=== PATIENT | male | born 1965 | race Caucasian/White ===

== ENCOUNTER → 2018-10-11 04:00 | Outpatient (REF) | payer MEDICARE, SELFPAY ==
[2018-10-11 08:32] LABS: Absolute Lymphocyte Count 1.07 X10^3/ul (0.83-4.51); Absolute Neutrophil Count 3.8 X10^3/uL (2.0-7.7); Basophil# 0.02 X10^3/uL; Basophil% 0.3 % (0-1); Eosinophil# 0.16 X10^3/uL; Eosinophils% 2.8 % (0-5); Hematocrit 47.6 % (40-54); Hemoglobin 15.8 g/dl (13.0-16.5); Lymphocyte # 1.07 X10^3/ul (4.0); Lymphocyte % 18.6 % (19-41); Mean Corp Hgb Conc 33.2 g/gl (32-36); Mean Corpuscular Hgb 31.3 pg (27.0-32.0); Mean Corpuscular Volume 94.4 fL (80-94); Mean Platelet Vol. 10.7 fl (6.2-12.0); Monocyte# 0.71 X10^3/uL; Monocyte% 12.3 % (0-10); Neutrophil # 3.78 X10^3/uL (2.7-7.7); Neutrophil % 65.8 % (47-70); Platelet Count 261 K/mm3 (150-450); RBC Distribution Width CV 12.8 % (11.6-14.6); RBC Distribution Width SD 43.3 fl (35.1-43.9); Red Blood Count 5.04 M/mm3 (4.6-6.2); White Blood Count 5.8 K/mm3 (4.4-11.0)
[2018-10-11 08:33] LABS: POSITIVE COUNT NO; POSITIVE DIFFERENTIAL NO; POSITIVE MORPHOLOGY NO
[2018-10-11 08:57] LABS: ALB/GLOB Ratio 0.8 RATIO (0.9-2.4); AST(SGOT) 17 U/L (15-37); Alanine Aminotransfer ALT/SGPT 21 U/L (16-61); Albumin, Serum 3.3 g/dL (3.2-5.0); Alkaline Phosphatase 86 U/L (45-117); Anion Gap 8 (5-15); BUN 13 mg/dL (7-18); BUN/Creat Ratio 16.3 RATIO (10-20); Calcium,Total 9.1 mg/dL (8.5-10.1); Chloride 107 mmol/L (98-107); EST Glomerular Filtration Rate 108 mL/min (>60); Est Glom Filt Rate - Afr Amer 131 mL/min (>60); Globulin 3.9 g/dL (2.2-4.2); Glucose 111 mg/dL (74-106); Protein, Total 7.2 g/dL (6.4-8.2); Sodium Level 141 mmol/L (136-145)
--- OUTSIDE RECORDS SUMMARY | 2018-11-27 04:11 | XMS RPT_ITS ---
:1965 Author Organization OHIP Care Team Providers Name Role Phone Janis Marin Attending Unavailable BASSEM BOO Attending Unavailable BASSEM BOO Referring Unavailable BASSEM BOO Primary Care Unavailable LEIDY HERZOG Admitting Unavailable MD HYACINTH LOPEZ Attending Unavailable SARAH WYATT Consulting Unavailable LEIDY HERZOG Admitting Unavailable HYACINTH LOPEZ Attending Unavailable SARAH WYATT Consulting Unavailable NOMAN KIM Admitting Unavailable NOMAN KIM Attending Unavailable NOMAN KIM Primary Care Unavailable NOMAN KIM Admitting Unavailable NOMAN KIM Attending Unavailable NOMAN KIM Primary Care Unavailable ENRRIQUE GLEASON Attending Unavailable PROBLEMS PROBLEMS DATE TYPE CONDITION / CODE ATTENDING STATUS SOURCE 10/26/2018 Unknown G35 - Multiple Marin, Rishin Active [place] sclerosis / Community G35(ICD-10) Hospital Repository 10/26/2018 Unknown F33.0 - Major Marin, Rishin Active [place] depressive Community disorder, Hospital recurrent, mild / Repository F33.0(ICD-10) 10/26/2018 Unknown R62.7 - Adult Marin, Rishin Active [place] failure to thrive / Community R62.7(ICD-10) Hospital Repository 10/26/2018 Unknown R53.1 - Weakness / Marin, Rishin Active [place] R53.1(ICD-10) Community Hospital Repository 10/26/2018 Unknown K05.6 - Periodontal Janis Marin Active [place] disease, Community unspecified / Hospital K05.6(ICD-10) Repository 10/26/2018 Unknown R13.12 - Dysphagia, Janis Marin Active [place] oropharyngeal phase Community / R13.12(ICD-10) Hospital Repository 04/04/2018 Active DYSPHAGIA NOMAN KIM Active [facility] OROPHARYNGEAL PHASE N Hospital / R13.12(ICD-10) Repository 04/04/2018 Principle DYSPHAGIA NOMAN KIM Active [facility] Diagnosis OROPHARYNGEAL PHASE N Hospital / R13.12(ICD-10) Repository 03/04/2018 Active Unknown / KEVIN, Active [place] UNK(Unknown) [facility] [place] Repository 12/10/2017 Active Weakness / ALSKARLARBAJI, Active [place] R53.1(ICD-10) [facility] Other [place] Repository 12/10/2017 Active Elevated white GOMEZ, Active [place] blood cell count, [facility] Other unspecified / [place] D72.829(ICD-10) Repository 12/07/2017 Active Altered mental GOMEZ, Active [place] status, unspecified [facility] Other / R41.82(ICD-10) [place] Repository 12/10/2017 Admitting Unknown / MD GOMEZ Active [facility] diagnosis UNK(Unknown) [facility] Repository PROCEDURES PROCEDURES No Procedure Records FoundRESULTS RESULTS CBC W/DIFF, AUTOMATED Collected: 10/11/2018 Status: F Source: [place] 5:30 AM [facility] REPOSITORY Order Comment: 316/2 TYPE CODE TESTS RESULT OUT OF RANGE REFERENCE UNITS LAB L100.1000 4.4-11.0 K/mm3 Normal WBC 5.8 LAB L100.1200 4.6-6.2 M/mm3 Normal RBC 5.04 LAB L100.1300 13.0-16.5 g/dl Normal HGB 15.8 LAB L100.1400 40-54 % Normal HCT 47.6 LAB L100.1500 80-94 fL High MCV 94.4 LAB L100.1600 27.0-32.0 pg Normal MCH 31.3 LAB L100.1700 32-36 g/gl Normal MCHC 33.2 LAB L100.1810 11.6-14.6 % Normal RDW CV 12.8 LAB L100.1820 35.1-43.9 fl Normal RDW SD 43.3 LAB L100.1900 150-450 K/mm3 Normal PLT 261 LAB L100.2000 6.2-12.0 fl Normal MPV 10.7 LAB L100.2100 47-70 % Normal NEUT% 65.8 LAB L100.2200 19-41 % Low LY% 18.6 LAB L100.2300 0-10 % High MONO% 12.3 LAB L100.2400 0-5 % Normal EO% 2.8 LAB L100.2500 0-1 % Normal BASO% 0.3 LAB L100.2550 0.0-0.9 % Normal IM GRAN % 0.200 Result Comment: IG% - Immature Granulocytes (promyelocytes, myelocytes and metamyelocytes) > 1% indicates that a LEFT SHIFT is Present. LAB L100.2620 2.0-7.7 X10 3/uL Normal Absolute Neut 3.8 LAB L100.2720 0.83-4.51 X10 3/ul Normal Absolute Lymph 1.07 Performed By: #### L100.0100 #### [facility] [address] [place], [address] COMPREHENSIVE METABOLIC Collected: 10/11/2018 Status: F Source: [facility] 5:30 AM [facility] REPOSITORY Order Comment: 316/2 TYPE CODE TESTS RESULT OUT OF RANGE REFERENCE UNITS LAB L501.0100 74-106 mg/dL High GLU 111 Result Comment: Fasting Glucose result from 100 to 125 mg/dL suggests IMPAIRED HOMEOSTASIS per A.D.A. criteria. Please note revised GLUCOSE reference range effective 2017. LAB L501.1000 7-18 mg/dL Normal BUN 13 LAB L501.1100 0.70-1.30 mg/dL Normal CREAT,SERUM 0.80 Result Comment: The validity of the calculated GFR AND GFRAA in patients over 70 years has not been determined. Clinical correlation is essential. LAB L501.1110 >60 mL/min Normal EST GFR 108 Result Comment: Non- GFR Calc LAB L501.1115 >60 mL/min Normal EST GFR - AA 131 Result Comment: GFR Calc LAB L501.1300 10-20 RATIO Normal BUN/CRE 16.3 LAB L501.1500 6.4-8.2 g/dL T Normal PROT 7.2 LAB L501.1800 3.2-5.0 g/dL Normal ALB 3.3 LAB L501.1950 2.2-4.2 g/dL Normal GLOB 3.9 LAB L501.2000 0.9-2.4 RATIO Low A/G 0.8 LAB L501.2200 8.5-10.1 mg/dL CA Normal 9.1 LAB L501.4100 15-37 U/L Normal AST 17 Result Comment: Slight Hemolysis, Result may be falsely increased. LAB L501.4305 45-117 U/L Normal ALK P 86 LAB L501.4405 16-61 U/L Normal ALT 21 LAB L501.4600 0.20-1.00 mg/dL Normal T BILI 0.20 LAB L501.5300 136-145 mmol/L Normal NA 141 LAB L501.5600 3.5-5.1 mmol/L Normal K 4.0 Result Comment: Slight Hemolysis, Result may be falsely increased. LAB L501.5900 98-107 mmol/L Normal CL 107 LAB L501.6100 21.0-32.0 mmol/L Normal CO2 26.0 LAB L501.6200 5-15 Normal 8 GAP Performed By: #### L500.4050 #### [facility] [facility] [place], [address] XR SWALLOWING FUNCTION Observed: 04/01/2018 Status: F Source: [place] WITH VIDEO 11:00 AM [facility] REPOSITORY MODIFIED BARIUM SWALLOW (COOKIE SWALLOW) History: Dysphagia. Fluoroscopy time: 2.2 minutes Fluoroscopy loops obtained: 17 Technique: The exam was performed under fluoroscopy with video recording. Barium mixtures of various consistencies was used. Findings: The exam shows poor mastication with posterior bolus leakage. There is delayed swallowing with vallecular residuals. There is no vocal cord penetration or airway aspiration at this time. The esophagus is not [<>] visualized in this exam for evaluation. IMPRESSION: Abnormal findings as described above. Please refer to the speech pathologist 's report for additional details and recommendations. Report Dictated on Authenticated by: Maryann Tolentino On: 04/01/2018 10:57 Read by: MARYANN TOLENTINO MD Date: 04/01/2018 10:57 PROGRESS Observed: 03/25/2018 Status: COMPLETED Source: [place] 1:13 PM CLINIC OTHER CAMPUS REPOSITORY HNO ID: [id number] Author: Hillary Mckeon Service: (none) Author Type: LICENSED NURSE Type: Progress Notes Filed: 03/25/2018 1:16 PM Note Text: Spoke with patients spouse, Jadyn. Jadyn stated that patient is now in a LTCF and will remain there, stated he will be using in house doctors from now on. Hillary Mckeon LPN CNPTOUTREACH Observed: 03/25/2018 Status: COMPLETED Source: [place] 12:00 AM CLINIC OTHER [place] REPOSITORY Patient Outreach ([facility]) SON COLUNGA ([id number]) 1965 M Date Time Provider Department 03/25/18 HILLARY MCKEON LPN During your visit today, we recorded the following information about you: Hillary Mckeon LPN 03/25/2018 1:16 PM Signed Spoke with patients spouse, Jadyn. Jadyn stated that patient is now in a LTCF and will remain there, stated he will be using in house doctors from now on. Hillary Mckeon LPN Allergies As of Date: 03/25/2018 (No Known Allergies) Date Reviewed: 03/04/2018 Reviewed by: Enrrique Gleason - Fully Assessed Reason for Visit: Patient Outreach [Other] Cmt: Patient Outreach Prescriptions as of 03/25/2018 Sig: PAROXETINE 30 MG TABLET TAKE 1 TABLET BY MOUTH ONCE D* METHYLCELLULOSE (LAXATIVE) 50* Take 1 tablet by mouth three * POLYETHYLENE GLYCOL 3350 17 G* Take 17 g by mouth once daily. CYANOCOBALAMIN (VIT B-12) 2,5* Dissolve 1 tablet under the t* MULTIVITAMIN ORAL Take by mouth. OCREVUS INTRAVENOUS Inject intravenously once rick* DOCUSATE SODIUM 100 MG CAPSULE Take 1 capsule by mouth once * CHOLECALCIFEROL (VITAMIN D3) * Take 1 capsule by mouth once * Problem List As Of Date 03/25/2018 Noted Resolved Gait abnormality [R26.9] INVALID FOR* Lack of coordination [R27.9] INVALID FOR* Multiple sclerosis (HCC) [G35] INVALID FOR* Dry eye syndrome [H04.129] INVALID FOR* Corneal scars, both eyes [H17.9] INVALID FOR* Nuclear senile cataract of both eyes [H25.13] INVALID FOR* Refractive error [H52.7] INVALID FOR* Dysphagia [R13.10] INVALID FOR* Periodontal disease [K05.6] INVALID FOR* Generalized weakness [R53.1] INVALID FOR* Leukocytosis [D72.829] INVALID FOR*12/10/2017 Encounter Status:Closed by HILLARY MCKEON LPN on 03/25/18 PROGRESS Observed: 03/04/2018 Status: COMPLETED Source: [place] 11:36 AM [facility] REPOSITORY O ID: [id number] Author: Enrrique Gleason Service: (none) Author Type: Physician Type: Progress Notes Filed: 03/04/2018 11:47 AM Note Text: ASSESSMENT/PLAN: 1. 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 3. Nuclear senile cataract of both eyes - ICD9: 366.16, ICD10: H25.13 Mild nuclear sclerosis both eyes - not visually significant both eyes Educated patient on condition; continue to monitor. 4. Multiple sclerosis (HCC) - ICD9: 340, ICD10: G35 States multiple sclerosis has been getting worse over past year 5. Refractive error - ICD9: 367.9, ICD10: H52.7 Glasses prescription given to patient Recheck in one year or sooner as needed Enrrique Gleason MD I have confirmed and edited as necessary the relevant ophthalmic history, ROS, and the neuro exam findings as obtained by others. I have seen and examined Son Colunga. I have discussed the case and the management of this patient's care with the Resident/Fellow, if applicable. I also have reviewed and agree with the assessment and plan as stated above and agree with all of its relevant components. MIRIAN Observed: 01/24/2018 Status: COMPLETED Source: [place] 12:00 AM [facility] OTHER [place] REPOSITORY Telephone ([facility]) SON COLUNGA ([id number]) 1965 M Date Time Provider Department 01/24/18 KAELYN CHAU) [facility] During your visit today, we recorded the following information about you: Kaelyn Chau RN, RN 01/24/2018 4:34 PM Signed Received phone call from pt requesting assistance with returning to apartment. Pt currently in [facility]. Chart reviewed. Recent admission 12/07/17 - 12/10/17 for UTI and MS with dc to SNF. Pt states he would like to return back to his apartment. He was receiving assistance thru [facility]. Informed that CM would contact [facility] CM to discuss ECF or return back to apartment. Discussed with Jay Askew RN [facility]. Pt discharged from [facility] 12[facility]03 care needs unable to be met in the home. Pt currently at [facility], unsure of transition to assisted living. Allergies As of Date: 01/24/2018 (No Known Allergies) Date Reviewed: 12/08/2017 Reviewed by: Melissa (Rn) RUSS Henderson - Fully Assessed Reason for Visit: Building Drafter - Other [[id number]] Cmt: Son [phone] Prescriptions as of 01/24/2018 Sig: PAROXETINE 30 MG TABLET TAKE 1 TABLET BY MOUTH ONCE D* METHYLCELLULOSE (LAXATIVE) 50* Take 1 tablet by mouth three * POLYETHYLENE GLYCOL 3350 17 G* Take 17 g by mouth once daily. CYANOCOBALAMIN (VIT B-12) 2,5* Dissolve 1 tablet under the t* MULTIVITAMIN ORAL Take by mouth. 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 No additional spot fluoroscopic images were made available for interpretation. A modified barium swallow was performed in conjunction with the speech pathology department. The patient was administered various consistencies of barium under direct fluoroscopic visualization in the lateral projection. FINDINGS: There was sonia aspiration of nectar thick liquids. No significant laryngeal penetration or aspiration was observed with honey thick liquids or other textures. Please see the full speech pathology note for additional details and recommendations. Report Dictated on Authenticated by: Eren Love On: 01/21/2018 10:12 Read by: EREN LOVE MD Date: 01/21/2018 10:12 OBSOLETE Observed: 01/08/2018 Status: COMPLETED Source: [place] 12:00 AM [facility] REPOSITORY Refill ([facility]) CRISTINESON ([id number]) 1965 M Date Time Provider Department 01/08/18 BASSEM BOO During your visit today, we recorded the following information about you: Casandra Calvo CMA 01/10/2018 10:16 AM Signed Pharmacy faxed requesting the following refill. Patient's last appointment: with Bassem Boo MD was 09/14/2017 Pending Prescriptions Disp Refills PAROXETINE 30 MG TABLET 90 tablet 0 Sig: TAKE 1 TABLET BY MOUTH ONCE DAILY. KRISTY: No Patient Phone numbers: [phone] (home) Request is for script(s) to be escript to pharmacy. Casandra Calvo CMA Allergies As of Date: 01/08/2018 (No Known Allergies) Date Reviewed: 12/08/2017 Reviewed by: Melissa Spivey) RUSS Henderson - Fully Assessed Reason for Visit: Refill Request [94] Order(s):PARoxetine (PAXIL) 30 mg tabletTAKE 1 TABLET BY MOUTH ONCE DAILY.Disp: 90 tabletRfl: 0 Prescriptions as of 01/08/2018 Sig: PAROXETINE 30 MG TABLET TAKE 1 TABLET BY MOUTH ONCE D* METHYLCELLULOSE (LAXATIVE) 50* Take 1 tablet by mouth three * POLYETHYLENE GLYCOL 3350 17 G* Take 17 g by mouth once daily. CYANOCOBALAMIN (VIT B-12) 2,5* Dissolve 1 tablet under the t* MULTIVITAMIN ORAL Take by mouth. OCREVUS INTRAVEN. Inject intravenously once rick* DOCUSATE SODIUM 100 MG CAPSULE Take 1 capsule by mouth once * CHOLECALCIFEROL (VITAMIN D3) * Take 1 capsule by mouth once * Problem List As Of Date 01/08/2018 Noted Resolved Gait abnormality [R26.9] INVALID FOR* Lack of coordination [R27.9] INVALID FOR* Multiple sclerosis (HCC) [G35] INVALID FOR* Dry eye syndrome [H04.129] INVALID FOR* Corneal scars, both eyes [H17.9] INVALID FOR* Nuclear cataract [H25.10] INVALID FOR* Refractive error [H52.7] INVALID FOR* Dysphagia [R13.10] INVALID FOR* Periodontal disease [K05.6] INVALID FOR* Generalized weakness [R53.1] INVALID FOR* Leukocytosis [D72.829] INVALID FOR*12/10/2017 Prescriptions ordered this encounter Disp Refills Start End PAROXETINE 30 MG TABLET 90 t* 0 01/10/2018 Sig: TAKE 1 TABLET BY MOUTH ONCE DAILY. Medications Discontinued During This Encounter PARoxetine (PAXIL) 30 mg tablet 90 t* 0 09/14/2017 01/10/2018 Route: ORAL Sig: Take 1 tablet by mouth once daily. Disc: Reason for discontinue is not on file. Encounter Status:Closed by BASSEM BOO MD on 01/10/18 NURSING PROG Observed: 12/10/2017 Status: COMPLETED Source: [place] 5:01 PM [facility] REPOSITORY HNO ID: [id number] Author: Edwar (Rn) RUSS Weiner Service: Nursing Author Type: Registered Nurse Type: Nursing Progress Note Filed: 12/10/2017 5:08 PM Note Text: Report called to Rajan at [facility]. NURSING PROG Observed: 12/10/2017 Status: COMPLETED Source: [place] 4:13 PM [facility] REPOSITORY HNO ID: [id number] Author: Edwar (Rn) RUSS Weiner Service: Nursing Author Type: Registered Nurse Type: Nursing Progress Note Filed: 12/10/2017 4:14 PM Note Text: Attempt was made to call report to Raajn at [facility]. Rajan not prepared to receive report at this time and requests to call back soon. CNDS Observed: 12/10/2017 Status: COMPLETED Source: [place] 2:23 PM [facility] REPOSITORY HNO ID: [id number] Author: Hyacinth Lopez Service: Hospital Medicine Author Type: Physician Type: Discharge Summaries Filed: 12/10/2017 2:25 PM Note Text: DISCHARGE SUMMARY PATIENT NAME: Son Colunga ADMISSION DATE: 12/07/2017 DISCHARGE DATE: 12/10/2017 ATTENDING PHYSICIAN: Hyacinth Lopez REASON FOR HOSPITALIZATION: ACTIVE PROBLEM LIST Gait Abnormality Lack of Coordination Multiple Sclerosis (Hcc) Dry Eye Syndrome Corneal Scars, Both Eyes Nuclear Cataract Refractive Error Dysphagia Periodontal Disease Generalized Weakness DIAGNOSIS: Active Problems: Generalized weakness Resolved Problems: Leukocytosis OPERATIONS DURING HOSPITALIZATION: None PROCEDURES DURING HOSPITALIZATION: No procedures performed HOSPITAL COURSE: presented to hospital for generalized weakness and fall, we believe this is related to progression course of multiple sclerosis course, you had elevated WBC count on admission which was likely reactive it normalized without antimicrobials, you were evaluated by physical therapy and occupational therapy, we are recommended to for rehab placement. You are agreeable LABS AND PROCEDURES PENDING AT DISCHARGE: No pending results. CONSULTING TEAMS DURING HOSPITALIZATION: None PATIENT CONDITION AT DISCHARGE: Stable DISCHARGE DISPOSITION: Long Term Facility Discharge Physical Exam: VITAL SIGNS: BP 128/79 Pulse 76 Temp 36.7 ?C (98.1 ?F) (Oral) Resp 18 Ht 170.2 cm (5' 7.01) Wt 68.5 kg (151 lb 0.2 oz) SpO2 95% BMI 23.65 kg/m2 Physical Exam Performed GENERAL: Alert, no distress, cooperative HEAD/SINUSES: No significant findings EYES: PERRLA, EOMI NECK: No jugulovenous distention, Carotid pulse normal contour, Supple LUNGS: Lungs clear to auscultation, Good diaphragmatic excursion CARDIAC: Normal S1 and S2; no rubs, murmurs, or gallops ABDOMEN: Abdomen soft, non-tender, BS normal, No masses or organomegaly EXTREMITIES: no edema or cyanosis NEURO: Grossly normal cognition, motor function, and cranial nerves III-XII PULSES: 2+ radial, 2+ carotid INFORMATION PROVIDED TO PATIENT: (To pull info documented from the DC Instruct Orderset Complete O/S First): DISCHARGE MEDICATION: Current Discharge Medication List CONTINUE these medications which have NOT CHANGED Methylcellulose (Laxative) 500 mg Take 500 mg by mouth three times daily with meals. Qty: 90 tablet Refills: 5 polyethylene glycol 3350 (MIRALAX, GLYCOLAX) 17 g Take 17 g by mouth once daily. Qty: 510 g Refills: 0 PARoxetine (PAXIL) 30 mg Take 30 mg by mouth once daily. Qty: 90 tablet Refills: 0 Cyanocobalamin 1 tablet Dissolve 1 tablet under the tongue once daily. Qty: 90 tablet Refills: 3 Associated Diagnoses:Vitamin B12 deficiency OCRELIZUMAB (OCREVUS INTRAVEN.) Inject intravenously once every 6 months. docusate sodium (COLACE) 100 mg Take 100 mg by mouth once daily. Qty: 30 capsule Refills: 1 Associated Diagnoses:Chronic constipation Cholecalciferol (Vitamin D3) 1 capsule Take 1 capsule by mouth once daily. Qty: 30 capsule Refills: 12 MULTIVITAMIN ORAL Take by mouth. FUTURE APPOINTMENTS: Follow Up with PCP: Bassem Boo MD TIME OF CARE (Use first blank if not applicable): TIME OF CARE: Discharge Management: I personally spent less than 30 minutes involved in the discharge management of this patient. SIGNATURE: Hyacinth Lopez MD PATIENT NAME: Son Colunga DATE: December 10, 2017 TIME: 2:23 PM PAGER/CONTACT #: THERAPY NT Observed: 12/10/2017 Status: COMPLETED Source: [place] 11:32 AM CLINIC OTHER CAMPUS REPOSITORY HNO ID: [id number] Author: Christian (Pt) Juan Service: Physical Therapy Author Type: Physical Therapist Type: Therapy (PT/OT/Speech/Resp) Filed: 12/10/2017 11:44 AM Note Text: Physical Therapy Treatment SERVICE DATE: 12/10/2017 SERVICE TIME: 1050 to 1113 ROOM: [place] [id number] Recommended Discharge Disposition: Subacute/SNF Recommended Discharge Disposition Comments: If pt declines and chooses to go home then he will benefit from home PT Justification For Post Acute Needs: Need for assistance may exceed support available PT Recommendations to Nursing: With assist of 1 person (pivot to BSC. If assist of two and walker then to bathroom.) Ambulation Device: Wheeled Walker PT 6 Clicks Score: 18 Precautions/Activity Restrictions: Bed/Chair Alarm;Fall Risk;Lines/Tubes/Drains Isolation Type: None ASSESSMENT : Pt still unsteady and needing min assist with transfers. Will benefit from the skilled services of PT at a SNF. Tolerated Full Session Physical Therapy Problem List: Education Deficit;Safety Deficits;Impaired Self Care;Decreased Activity Tolerance;Decreased Strength;Functional Mobility Impairment;Balance Impaired Patient /Caregiver Goals: Walk;Go Home Goals for Plan of Care: Able to perform HEP with: Verbal Cues Only Transfer supine to/from sit with: Contact Guard Assistance Transfer sit to/from stand with: Contact Guard Assistance Ambulate with: Contact Guard Assistance Distance: 50 Device: Wheeled Walker Goal: pt maintains balance with dynamic activities including picking objects up from floor. Progress Toward Goals: Progressing as expected Rehab Potential: Good PLAN: Treatment Frequency (times per week): 5 (2-5) Treatment Interventions: Education;Strengthening;Functional Mobility Training;Balance Training Plan of Care developed with: Patient TREATMENT INTERVENTIONS: Therapy Diagnosis: Reduced mobility-other;Unsteadiness on feet;Abnormalities of gait and mobility-other Interventions Provided: Therapeutic Exercise (33792);Therapeutic Activity (90980);Gait Training (20570) Therapeutic Exercise (31757) Treatment Minutes: 12 1 unit Skilled Intervention(s): Instruction in therapeutic exercise L LE strength and coordination exs. 10 reps. Also completed 10 reps of bridging and sidelying hip abduction. Verbal and tactile cuing provided . Facilitation of muscle control, optimal recruitment and alignment especially with hip abduction to recruit abductors not hip flexors. Therapeutic Activity (44734) Treatment Minutes: 5 0 units Skilled Intervention(s): Instructed patient in sit to supine using safe, effective technique Instruction in stand to sit technique with lower extremities touching chair/bed and reaching back for surface Education with need to have assist whenever on feet. Pt needed PT guidance to deal with reported dizziness upon siting up. Pt instructed to lay down and immediately get back up and he felt better. Gait Training (28246) Treatment Minutes: 6 1 unit Skilled Intervention(s): Instruction in sit to stand technique with proper hand placement and body positioning at edge of bed/chair, Instruction in use of equipment, cues for sequence and pattern and Pt needed monitoring and guidance on limiting ambulation distance due to c/o dizziness this session. Total Timed Code Treatment Minutes: 23 Total Treatment Time (minutes): 23 FUNCTIONAL G CODE: PT 6 Clicks Score: 18 (12/10/17 1050) Mobility: Walking and Moving Around Current Status (G8978): CK (12/08/17 1045) Mobility: Walking and Moving Around Goal Status (G8979): CJ (12/08/17 1045) Based on clinical assessment and the score on the 6 Clicks Functional Assessment Tool, the G code and corresponding severity modifiers are documented above. SUBJECTIVE: Current Hospital Course: Chart reviewed and no significant medical updates relevant to therapy were noted Patient Report: Pt willing to participate. Pt with increase c/o unsteady gait and dizziness this session. Home Environment Patient Lives With: Self/Alone Assistance Available: multimedia programmer (Aids 7 d/week for 5 hr/day) Entry To Home: Elevator (apartment- senior care) Number Of Stairs To Bed/Bath: 0 Laundry: 2nd floor? Equipment Owned: Rollator Prior Functional Level: Required Assistance;History of Falls Assistance Required With: Self Care Prior Functional Level Comments: Aid assists with ADLs and IADLs OBJECTIVE: CURRENT FUNCTIONAL STATUS: Current Functional Mobility Assist Level Additional Information Rolling Minimal Assistance Supine to Sit Minimal Assistance Sit to Supine Contact Guard Assistance Scooting Contact Guard Assistance Sit to Stand Minimal Assistance Stand to Sit Contact Guard Assistance Bed to Chair Toilet/Commode Gait Minimal Assistance Gait Device: Wheeled Walker Gait Distance (feet): 20 Stairs Curb Step Car Transfer General Gait Deviations: Shuffling Gait;Loss of Balance (ataxia L LE) Balance: Dynamic Standing Dynamic Standing Balance: Minimal Assistance Please see discipline specific clinical documentation flowsheet for complete details for this therapy evaluation/treatment. SIGNATURE: Christian Martinez PT PATIENT NAME: Son Colunga DATE: December 10, 2017 TIME: 11:32 AM PAGER/CONTACT #: [phone] CASE MANAGEM Observed: 12/10/2017 Status: COMPLETED Source: [place] 10:32 AM [facility] REPOSITORY HNO ID: [id number] Author: Sena (Rn) RUSS Chopra Service: Care Management Author Type: Registered Nurse Type: Care Mgt Progress Note Filed: 12/10/2017 10:33 AM Note Text: CARE MANAGEMENT PROGRESS NOTE SERVICE DATE: 12/10/2017 SERVICE TIME: 10:32 AM LOS: 0 days Needs Prior to Discharge: Discharge Transportation;Insurance Authorization CHART REVIEWED. AWAITING INSURANCE AUTH FOR [facility]. SPOKE TO JADYN [facility] [phone] WITH UPDATE. SIGNATURE: Sena Chopra RN PATIENT NAME: Son Colunga DATE: December 10, 2017 TIME: 10:32 AM PAGER/CONTACT #: [phone] CASE MANAGEM Observed: 12/10/2017 Status: COMPLETED Source: [place] 9:36 AM [facility] REPOSITORY HNO ID: [id number] Author: Marnie (Specialist) Spike Service: Care Management Author Type: (none) Type: Care Mgt Progress Note Filed: 12/10/2017 9:37 AM Note Text: PASS complete to [facility], filed, uploaded in [employer], placed in D/P section of the chart. SOCIAL WORK Observed: 12/10/2017 Status: COMPLETED Source: [place] 9:18 AM [facility] OTHER CAMPUS REPOSITORY HNO ID: [id number] Author: Angi Sanon) EDUARD Mendieta Service: Social Work Author Type: Center Mgr Type: Social Work Filed: 12/10/2017 9:23 AM Note Text: SOCIAL WORK PROGRESS NOTE SERVICE DATE: 12/10/2017 SERVICE TIME: 9:18 AM LOS: 0 days Received call from patient's [facility].Jadyn who wanted to discuss plans for discharge and patient's future needs. Referred specifc questions to Ecff. Time Spent (minutes): 45 SIGNATURE: EDUARD Christie PATIENT NAME: Son Colunga DATE: December 10, 2017 TIME: 9:18 AM PAGER/CONTACT #: [phone] CASE MANAGEM Observed: 12/09/2017 Status: COMPLETED Source: [place] 3:19 PM [facility] REPOSITORY HNO ID: [id number] Author: Paula Spivey) RUSS Pan Service: Care Management Author Type: Registered Nurse Type: Care Mgt Progress Note Filed: 12/09/2017 3:35 PM Note Text: CARE MANAGEMENT PROGRESS NOTE SERVICE DATE: 12/09/2017 SERVICE TIME: 3:19 PM LOS: 0 days Chart reviewed. [facility] [place] ([facility]) able to accept patient. Awaiting insurance authorization. Will continue to follow for discharge needs. SIGNATURE: Paula Pan RN PATIENT NAME: Son Colunga DATE: December 09, 2017 TIME: 3:19 PM PAGER/CONTACT #: [phone] PROGRESS Observed: 12/09/2017 Status: COMPLETED Source: [place] 2:42 PM [facility] REPOSITORY HNO ID: [id number] Author: Hyacinth Lopez Service: Hospital Medicine Author Type: Physician Type: Progress Notes Filed: 12/09/2017 2:48 PM Note Text: DEPARTMENT OF HOSPITAL MEDICINE PROGRESS NOTE SERVICE DATE: 12/08/2017 SERVICE TIME: 5:40 PM Hospital Medicine/Primary Attending: Hyacinth Lopez MD NIGHT AND WEEKEND COVERAGE: After 7pm, please call cross cover pager #[phone] Subjective Patient has no new complaints, denied chest pain, nausea, vomiting or diarrhea, VS stable overall feels weak and agreeable for SNF placement MEDICATIONS: Reviewed Objective PHYSICAL EXAM: BP 128/91 Pulse 72 Temp (Src) 97.5 (Oral) Resp 18 Ht 5' 7.008 (1.70m) Wt 151 lb 0.2 oz (68.5kg) SpO2 95% BMI 23.65 kg/(m2). Physical Exam Performed GENERAL: Alert, no distress, cooperative HEAD/SINUSES: No significant findings EYES: PERRLA, EOMI NECK: No jugulovenous distention, Carotid pulse normal contour, Supple LUNGS: Lungs clear to auscultation, Good diaphragmatic excursion CARDIAC: Normal S1 and S2; no rubs, murmurs, or gallops ABDOMEN: Abdomen soft, non-tender, BS normal, No masses or organomegaly EXTREMITIES: no edema or cyanosis NEURO: Grossly normal cognition, motor function, and cranial nerves III-XII PULSES: 2+ radial, 2+ carotid Lines, Drains, and Airways Line Peripheral 12/07/17 1501 Right Hand 20 Gauge 1 day Reviewed lines, drains, AND airways. Need to be continued for today DATA: Diagnostic tests reviewed for today's visit: Most recent labs and imaging results. Most recent EKG Assessment/Plan Generalized weakness likely related to his MS, : awaiting SNF palcement Hx of MS on immunotherapy, does not appear to have flare up, he follows outpatient neurologist Depression cont Paxil Hx of Vit B12 cont supplement level is therapeutic VTE Prophylaxis: Lovenox 40mg Sub Q Daily Disposition: Home with [facility] Plan of care discussed with: Patient, Case Mangement and RN SIGNATURE: Hyacinth Lopez MD PATIENT NAME: Son Colunga DATE: December 09, 2017 TIME: 2:42 PM PAGER/CONTACT #: [phone] CONSULT Observed: 12/09/2017 Status: COMPLETED Source: [place] 1:21 PM [facility] OTHER CAMPUS REPOSITORY HNO ID: [id number] Author: Lian Ross Service: Psychology Author Type: Physician Type: Consults Filed: 12/09/2017 4:03 PM Note Text: Psychology Consultation Capacity Evaluation December 09, 2017 Pt seen from 12:50-1:40 This is a 52 year old man who is diagnosed with MS, presenting now to the hospital after an episode of increasing weakness of unclear etiology. They admitted him for evaluation and possible placement. This evaluation requested to assess capacity for decision making given pt's difficulty caring for needs at home and confusion about where he is to be placed. Prior to direct evaluation and interview, I reviewed available records and spoke with the licensed clinical social worker managing the case. MSE: Pt was in bed, alert and oriented on all spheres. His mood was mildly anxious and overwhelmed. His affect was mood congruent, including tearfulness at times as well as smiling/laughing. He appeared to be making an effort to be jovial and friendly. His speech was at times slow and hard to understand, perhaps secondary to lower baseline intellectual abilities and/or his disease process. He had poor dentition. His thought processes were logical and goal directed, with no clear indication of psychotic thought process. He denied and did not evidence hallucinations or paranoia. He denied suicidal or homicidal ideation. He occasionally made mildly inappropriate social comments regarding the interviewer,most likely due to a desire to connect socially. He was cooperative throughout. Pt knew the name of the current president. He was frequently acquiescent and seemed to make efforts to please the examiner. His MOCA score of 13/30 was suggestive of significant cognitive impairment, particularly related to executive function, language/abstraction, and delayed recall. His performance did appear to be affected by anxiety and he may have a baseline level of impairment intellectually. Interview: pt related that he came to the hospital after he was anxious and hyperventilating about various stressors. He acknowledged being diagnosed with MS in November 2010 and having complications of that. He named his doctor as Dr. Escobedo and reported that he gets treatment at the [facility]. He knew he has six home medications and he was able to refer to a list of meds that he keeps although he did now know their names. He was aware of their indication for MS. Pt was aware that his doctors were recommending senior care placement in both the short and longer-term. He described uncertainty about this decision, as he related anxiety about making friends in that setting. He talked about being lonely and fearing he would not fit in because he is younger than other patients who might be there. He was are of the potential benefits of the recommendation, including improving his balance, his unsteady gait, gaining weight in that environment, and engaging in more activities/games with other residents. His primary hesitation about going was related to his fears of being uncomfortable, losing his stuff at home, and fears about not fitting in. He seemed to acknowledge, but minimize, the risks of going home. He was aware that he needs help from others to function physically. 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 Has limited social support. Recently ID'ed his neighbor of 1.5 years as HCPOA. Has four kids, ages 16-28. Lives alone in apartment in [place]; has some in-home supports. Psych: Apparently treated in childhood with therapy. More recently, has been treated with medication for depression/anxiety/anger. He says he currently takes Paxil from his neurologist. He denies any history of suicidality or suicide attempts. He describes his kids as protective factors. Impressions: This is a 52 year old man with a diagnosis of MS and associated weakness/debility. He needs more help than his neighbor plus his caretakers can provide at home and has been recommended for senior care care. Pt understood the recommendations and was able to reason about his choices. He was able to describe in general terms the risks and benefits of his various options, and he seemed to acknowledge his limitations. He does present with cognitive impairments on testing but nonetheless seems able to appreciate his situation. Accordingly, he would appear to meet usual standards for medical decision making related to planning his discharge. At this time, he does agree to going to SNF. I would certainly recommend involving his HCPOA in decision making for his own benefit, but it is my opinion that he has capacity to make this decision. I would also recommend providing reassurance to pt about the social environment at the senior care and attempting to assuage his fears about socializing at the senior care. Providing risks/benefits in a clear, concrete way would be to his benefit. He expressed satisfaction with is current psychiatric medication and was not interested in further treatment for depression at this time. As always, capacity is a fluid concept and may change with time/cognitive/emotional functioning. Please feel free to request re-evaluation should his situation change. Lian Ross, PhD CASE MANAGEM Observed: 12/09/2017 Status: COMPLETED Source: [place] 10:21 AM [facility] OTHER CAMPUS REPOSITORY HNO ID: [id number] Author: Marnie (Specialist) Spike Service: Care Management Author Type: (none) Type: Care Mgt Progress Note Filed: 12/09/2017 10:21 AM Note Text: SNF referral sent to [facility] SOCIAL WORK Observed: 12/09/2017 Status: COMPLETED Source: [place] 10:06 AM [facility] REPOSITORY HNO ID: [id number] Author: EDUARD Christie (Lisw) Service: Social Work Author Type: Center Mgr Type: Social Work Filed: 12/09/2017 10:12 AM Note Text: SOCIAL WORK PROGRESS NOTE SERVICE DATE: 12/09/2017 SERVICE TIME: 10:06 AM LOS: 0 days [facility] patient was coming home and she can't care for him. Met with patient and reinforced that P.T. is recommending SNF and that Jadyn is unable to care for him any longer and [facility] cannot increase help by much. Patient now agrees to go to SNF but wants to go to a SNF where he can [facility] to [facility] the assisted living. Talked to Leah Moraes today,[employer] and she is coming out today to try to get the Waiver kashif started. .Called back Jadyn who wants [facility] if possible. will let CM know. Time Spent (minutes): 45 SIGNATURE: EDUARD Christie PATIENT NAME: Son Colunga DATE: December 09, 2017 TIME: 10:06 AM PAGER/CONTACT #: [phone] CASE MANAGEM Observed: 12/09/2017 Status: COMPLETED Source: [place] 9:33 AM [facility] REPOSITORY HNO ID: [id number] Author: Paula Pan RN Service: Care Management Author Type: Registered Nurse Type: Care Mgt Progress Note Filed: 12/09/2017 3:35 PM Note Text: CARE MANAGEMENT PROGRESS NOTE SERVICE DATE: 12/09/2017 SERVICE TIME: 9:33 AM LOS: 0 days Chart reviewed. Spoke with patient at the bedside and patient's [facility] Jadyn. Patient agreeable to post acute inpatient facility. First choice for post acute inpatient facility is now [facility] in [place]. Await acceptance. Will continue to follow for discharge needs. SIGNATURE: Paula Pan RN PATIENT NAME: Son Gillraghu DATE: December 09, 2017 TIME: 9:33 AM PAGER/CONTACT #: [phone] PROGRESS Observed: 12/08/2017 Status: COMPLETED Source: [place] 5:40 PM [facility] OTHER CAMPUS REPOSITORY HNO ID: [id number] Author: Hyacinth Lopez Service: Hospital Medicine Author Type: Physician Type: Progress Notes Filed: 12/08/2017 5:45 PM Note Text: DEPARTMENT OF HOSPITAL MEDICINE PROGRESS NOTE SERVICE DATE: 12/08/2017 SERVICE TIME: 5:40 PM Hospital Medicine/Primary Attending: Hyacinth Lopez MD NIGHT AND WEEKEND COVERAGE: After 7pm, please call cross cover pager #[phone] Subjective INTERVAL HPI: patient was admitted for weakness and fall, he has hx of MS, Today patient tells me he feels much better, he said yesterday the bathroom was wet and he slipped but denied LOC, vs stable, patient remained afebrile, no significant orthostatic changes MEDICATIONS: Reviewed Objective PHYSICAL EXAM: BP 149/79 Pulse 91 Temp (Src) 98.1 (Oral) Resp 18 Ht 5' 7.008 (1.70m) Wt 151 lb 0.2 oz (68.5kg) SpO2 97% BMI 23.65 kg/(m2). Physical Exam Performed GENERAL: Alert, no distress, cooperative HEAD/SINUSES: No significant findings EYES: PERRLA, EOMI NECK: No jugulovenous distention, Carotid pulse normal contour, Supple LUNGS: Lungs clear to auscultation, Good diaphragmatic excursion CARDIAC: Normal S1 and S2; no rubs, murmurs, or gallops ABDOMEN: Abdomen soft, non-tender, BS normal, No masses or organomegaly EXTREMITIES: no edema or cyanosis NEURO: Grossly normal cognition, motor function, and cranial nerves III-XII PULSES: 2+ radial, 2+ carotid Lines, Drains, and Airways Line Peripheral 12/07/17 1501 Right Hand 20 Gauge 1 day Reviewed lines, drains, AND airways. Need to be continued for today DATA: Diagnostic tests reviewed for today's visit: Most recent labs and imaging results. Most recent EKG Assessment/Plan Generalized weakness likely related to his MS, PT/OT recommended SNF however patient wanted to be discharged home possibly in AM and continue home health, he stated he had good support at home, Leukocytosis : resolved this is likely reactive, no need for antimicrobials VTE Prophylaxis: Lovenox 40mg Sub Q Daily Disposition: Home with [facility] Plan of care discussed with: Patient, Case Mangement and RN SIGNATURE: Hyacinth Lopez MD PATIENT NAME: Son Colunga DATE: December 08, 2017 TIME: 5:40 PM PAGER/CONTACT #: [phone] CASE MANAGEM Observed: 12/08/2017 Status: COMPLETED Source: [place] 3:17 PM [facility] OTHER CAMPUS REPOSITORY HNO ID: [id number] Author: Marnie (Specialist) Spike Service: Care Management Author Type: (none) Type: Care Mgt Progress Note Filed: 12/08/2017 3:17 PM Note Text: SNF referral made to [facility] CASE MANAGEM Observed: 12/08/2017 Status: COMPLETED Source: [place] 3:07 PM [facility] REPOSITORY HNO ID: [id number] Author: Sena (Rn) RUSS Chopra Service: Care Management Author Type: Registered Nurse Type: Care Mgt Progress Note Filed: 12/08/2017 3:11 PM Note Text: CARE MANAGEMENT PROGRESS NOTE SERVICE DATE: 12/08/2017 SERVICE TIME: 3:08 PM LOS: 0 days Needs Prior to Discharge: Accepting Facility;Insurance Authorization;Discharge Transportation CHOICES OBTAINED FROM PATIENT AND LACY BEAVER 1) [facility] 2) [facility] 3) [facility] [place]. AWAIT BED AVAILABILITY/ACCEPTANCE. PATIENT TRAHILDA JADYN WOULD LIKE THE PATIENT TO BE SKILLED THEN GO INTERMEDIATE AT SAME FACILITY SIGNATURE: Sena Chopra RN PATIENT NAME: Son Colunga DATE: December 08, 2017 TIME: 3:07 PM PAGER/CONTACT #: [phone] SOCIAL WORK Observed: 12/08/2017 Status: COMPLETED Source: [place] 2:23 PM [facility] OTHER CAMPUS REPOSITORY HNO ID: [id number] Author: EDUARD Christie (Lisw) Service: Social Work Author Type: Center Mgr Type: Social Work Filed: 12/08/2017 2:36 PM Note Text: SOCIAL WORK CONSULT NOTE SERVICE DATE: 12/08/2017 SERVICE TIME: 2:23 PM Referred by: Renal Medicine Specialist Reason for visit: Complex Transition - Patient has M.S. and condition is deteriorating. He cannot care for self any longer at home and caregiver is 86 yrs. old Living Arrangement: Home Lives With: Alone Financial Resources: Disabled Primary Contact: Extended Emergency Contact Information Primary Emergency Contact: Jadyn Shea J Relation: None Secondary Emergency Contact: Sarah Loving Address: [address] [place] [address] Relation: None Supportive: Yes, Unable to assess at this time Other Important Patient Contacts: POA: Name: Jadyn Shea is [phone] Cell Health Insurance: [place]/Medicaid Son Colunga is a 52 year old male who lives alone and had [facility] services Mon-Fri 8am-1pm. Met with patient and his neighbor, Jadyn. Jadyn was caring for patient in the evenings and spending her own money for food for him. Patient did not have DPOAHC. He has 4 children. Two children are adults,Ashley [place] and Charissa Johnson but they are not involved in his life. Patient also has a sister but Jadyn states she was not acting in patient's best interest and he lost a lot of weight under her care. Patient wished to make Jadyn his DPOAHC. Jadyn stattes she will act in this capacity but can no longer do the physical work to care for patient. Discussed going to a SNF straight from hospital and Assisted living from there. Patient is agreeable. Called Leah Askew/[facility] and asked her to see him tomorrow. Met patient's [facility] worker Lilly [phone] who was in favor of plan and can disenroll patient from [facility] after SNF so he would be eligible for Waiver/Assisted Living. Completed advance directives with patient and placed copy on chart. Will take copy to Registration to have scanned in. Outcome/Recommendations: Advance Directive/Completed Time spent (minutes): 90 SIGNATURE: EDUARD Christie PATIENT NAME: Son Colunga DATE: December 08, 2017 TIME: 2:23 PM PAGER/CONTACT#: [phone] CASE MANAGEM Observed: 12/08/2017 Status: COMPLETED Source: [place] 1:58 PM [facility] OTHER [facility] REPOSITORY HNO ID: [id number] Author: Sena CatRn) RUSS Chopra Service: Care Management Author Type: Registered Nurse Type: Care Mgt Progress Note Filed: 12/08/2017 2:05 PM Note Text: CARE MANAGEMENT PROGRESS NOTE SERVICE DATE: 12/08/2017 SERVICE TIME: 1:58 PM LOS: 0 days Needs Prior to Discharge: Accepting Facility;Insurance Authorization;Discharge Transportation HCPOA FORMS COMPLETED BY SOCIAL WORK. AND PATIENT. PATIENT HAS DECIDED TO GO TO FACILITY AT DC INSTEAD OF HOME PER PT/OT REC. CHOICE LIST PROVIDED. AWAIT CHOICES. SIGNATURE: Sena Chopra RN PATIENT NAME: Son Colunga DATE: December 08, 2017 TIME: 1:58 PM PAGER/CONTACT #: [phone] ALLIED HEALTH Observed: 12/08/2017 Status: COMPLETED Source: [place] 1:13 PM [facility] REPOSITORY HNO ID: [id number] Author: Sultana CatRn) RUSS Goodman Service: Home Care Services Author Type: Registered Nurse Type: Allied Health Filed: 12/08/2017 1:15 PM Note Text: HEAD CHAR FILTER TANK TENDER NOTE SERVICE DATE: 12/08/2017 SERVICE TIME: 1:13 PM Patient Choice: Spoke with patient at bedside Discussed home health care services. Patient given a choice - pt active with [facility] for [facility] 7 days/week and SN visit once per week. Spoke with pt and friend/chemical dependency nurse Jadyn. Per Jadyn, TILE ERECTOR's are often unreliable and don't show up when they're suppposed to. States she has grave concerns about pt.'s safety at home. States she has spoken to about her concerns. SIGNATURE: Sultana Goodman RN PATIENT NAME: Son Colunga DATE: December 08, 2017 TIME: 1:13 PM NURSING PROG Observed: 12/08/2017 Status: COMPLETED Source: [place] 12:54 PM [facility] REPOSITORY HNO ID: [id number] Author: Janelle CatRn) RUSS Goyal Service: (none) Author Type: Registered Nurse Type: Nursing Progress Note Filed: 12/08/2017 12:55 PM Note Text: Dr. Lopez called back states he has continued IV fluids, and number of day care supervisor Kiley given to About competency eval request from advocate/neighbor Jadyn PREALBUMIN Collected: 12/08/2017 Status: F Source: [facility] 12:53 PM HEALTH SYSTEM REPOSITORY TYPE CODE TESTS RESULT OUT OF REFERENCE UNITS RANGE LAB PAB(LOINC) 20.0-40.0 mg/dL Prealbumin 23.0 Performed By: #### PAB #### [place] [address] HEPATIC PANEL Collected: 12/08/2017 Status: F Source: [facility] 12:53 PM HEALTH SYSTEM REPOSITORY TYPE CODE TESTS RESULT OUT OF REFERENCE UNITS RANGE LAB ALB(LOINC) 3.4-5.0 g/dL Low Albumin Blood 3.3 LAB ALT(LOINC) 12-78 U/L ALT-SGPT Blood 18 LAB ALKP(LOINC 46-116 U/L ) Alk Phosphatase 72 LAB TP(LOINC) 6.4-8.2 g/dL Total Protein 7.1 LAB AST(LOINC) 9-37 U/L AST-SGOT Blood 16 LAB BILIT(LOIN 0.2-1.0 mg/dL C) Total Bilirubin 0.4 LAB DBIL(LOINC 0.00-0.20 mg/dL ) Direct Bilirubin 0.12 Performed By: #### HEPAP #### [place] [address] NURSING PROG Observed: 12/08/2017 Status: COMPLETED Source: [place] 12:15 PM [facility] REPOSITORY HNO ID: [id number] Author: Janelle CatRn) RUSS Goyal Service: (none) Author Type: Registered Nurse Type: Nursing Progress Note Filed: 12/08/2017 12:16 PM Note Text: Dr Lopez text paged care management and pts neighbor requesting competency eval, and that fluids were discontinued did he still want fluids, also text paged orthostatic vital signs awaiting orders [facility] Observed: 12/08/2017 Status: COMPLETED Source: [place] 11:38 AM [facility] REPOSITORY HNO ID: [id number] Author: Gill Lloyd Office Coord Service: (none) Author Type: (none) Type: Allied Health Filed: 12/08/2017 11:50 AM Note Text: HEAD CHAR FILTER TANK TENDER NOTE SERVICE DATE: 12/08/2017 SERVICE TIME: 1139 Referral: Home Care referral received by: RAZA Patient is active with [facility] agency for Home Care ( [facility] waiting for confirmation) Will continue to follow for physician orders SIGNATURE: Gill Lloyd Office Coord PATIENT NAME: Son Colunga DATE: December 08, 2017 TIME: 11:39 AM THERAPY NT Observed: 12/08/2017 Status: COMPLETED Source: [place] 11:31 AM [facility] OTHER CAMPUS REPOSITORY HNO ID: [id number] Author: Christian (Pt) Juan Service: Physical Therapy Author Type: Physical Therapist Type: Therapy (PT/OT/Speech/Resp) Filed: 12/08/2017 11:43 AM Note Text: Physical Therapy Evaluation Admitting physician cosign request is for the purpose of certifying the plan of care for regulatory requirements. SERVICE DATE: 12/08/2017 SERVICE TIME: 1045 to 1110 ROOM: [id number] Recommended Discharge Disposition: Subacute/SNF Recommended Discharge Disposition Comments: If pt declines and chooses to go home then he will benefit from home PT Justification For Post Acute Needs: Need for assistance may exceed support available PT Recommendations to Nursing: With assist of 1 person (pivot to BSC. If assist of two and walker then to bathroom.) Ambulation Device: Wheeled Walker PT 6 Clicks Score: 18 Precautions/Activity Restrictions: Bed/Chair Alarm;Fall Risk;Lines/Tubes/Drains Isolation Type: None ASSESSMENT : Pt unsteady balance with gait, at risk for continued falls. Will benefit from skilled PT at SNF. Patient presents with personal factors, comorbidities and results of the PT examination that require moderate complexity decision making. The patient requires skilled physical therapy to address multiple PT problems in order for the patient to return to a baseline functional level. . Requires skilled PT for functional mobility training and strengthening, balance training. Tolerated Full Session Physical Therapy Problem List: Education Deficit;Safety Deficits;Impaired Self Care;Decreased Activity Tolerance;Decreased Strength;Functional Mobility Impairment;Balance Impaired Patient /Caregiver Goals: Walk;Go Home Goals for Plan of Care: Able to perform HEP with: Verbal Cues Only Transfer supine to/from sit with: Contact Guard Assistance Transfer sit to/from stand with: Contact Guard Assistance Ambulate with: Contact Guard Assistance Distance: 50 Device: Wheeled Walker Goal: pt maintains balance with dynamic activities including picking objects up from floor. Rehab Potential: Good PLAN: Treatment Frequency (times per week): 5 (2-5) Treatment Interventions: Education;Strengthening;Functional Mobility Training;Balance Training Plan of Care developed with: Patient TREATMENT INTERVENTIONS: Therapy Diagnosis: Reduced mobility-other;Unsteadiness on feet;Abnormalities of gait and mobility-other Interventions Provided: Evaluation;Therapeutic Exercise (71588);Therapeutic Activity (19943);Gait Training (70120) $ Evaluation-Moderate (16351) Billed Units: 1 unit Therapeutic Exercise (10330) Treatment Minutes: 6 1 unit Skilled Intervention(s): Instruction in therapeutic exercise L LE coordination exs/strength exs. Pt performed 10 reps. Verbal and tactile cuing provided . Therapeutic Activity (96452) Treatment Minutes: 2 0 units Skilled Intervention(s): Instructed patient in sit to supine using safe, effective technique Instruction in stand to sit technique with lower extremities touching chair/bed and reaching back for surface Instruction in sit to and from stand technique with proper hand placement and body positioning at edge of bed/chair Education with need to have assistance whenever gets up here at hospital due to safety concerns. Discussed rationale for our recommendation to go to SNF. Gait Training (74985) Treatment Minutes: 2 0 units Skilled Intervention(s): Instruction in use of equipment, cues for sequence and pattern and education to maintain close proximity to the walker. Total Timed Code Treatment Minutes: 10 Total Treatment Time (minutes): 25 FUNCTIONAL G CODE: PT 6 Clicks Score: 18 (12/08/17 1045) Mobility: Walking and Moving Around Current Status (G8978): CK (12/08/17 1045) Mobility: Walking and Moving Around Goal Status (G8979): CJ (12/08/17 1045) Based on clinical assessment and the score on the 6 Clicks Functional Assessment Tool, the G code and corresponding severity modifiers are documented above. Physician signature certifies treatment plan of care established above for the period of 12/08/2017 through 12/22/2017. SUBJECTIVE: Current Hospital Course: Chart reviewed; Generalized weakness HPI: This is a 52 year old mal who presented for generalized weakness and reported a fall to the floor and could not get up. Reports he has slow but continuous progression of MS Active Hospital Problems Diagnosis - Generalized weakness - Leukocytosis PAST MEDICAL HISTORY Diagnosis Date - Acute dermatitis - Itching - Multiple sclerosis (HCC) 08/28/2014 PAST SURGICAL HISTORY Procedure Laterality Date - NONE - PAST SURGICAL HISTORY OF lypoma on neck; unable to perform surgery Patient Report: Pt willing to participate in PT. Wants to go home at d/c. Home Environment Patient Lives With: Self/Alone Assistance Available: multimedia programmer (Aids 7 d/week for 5 hr/day) Entry To Home: Elevator (apartment- senior care) Number Of Stairs To Bed/Bath: 0 Laundry: 2nd floor? Equipment Owned: Rollator Prior Functional Level: Required Assistance;History of Falls Assistance Required With: Self Care Prior Functional Level Comments: Aid assists with ADLs and IADLs OBJECTIVE: CURRENT FUNCTIONAL STATUS: Current Functional Mobility Assist Level Additional Information Rolling Contact Guard Assistance Supine to Sit Contact Guard Assistance Sit to Supine Contact Guard Assistance Scooting Contact Guard Assistance Sit to Stand Minimal Assistance (for balance) Stand to Sit Contact Guard Assistance Bed to Chair Toilet/Commode Gait Minimal Assistance Gait Device: Wheeled Walker Gait Distance (feet): 25 Stairs Curb Step Car Transfer Range Of Motion: Within Functional Limits Except Location ROM Not WFL: Ankle Left Ankle ROM: DF to neutral Strength: Within Functional Limits Except Location Strength Not WFL: (L LE 4-/5) Coordination Deficits: Heel to santos (pt with decreased coordination with movement of L LE in gen) Heel to Santos Impairment: Left General Gait Deviations: Shuffling Gait;Loss of Balance (ataxia L LE) Balance: Dynamic Standing Dynamic Standing Balance: Minimal Assistance Please see discipline specific clinical documentation flowsheet for complete details for this therapy evaluation/treatment. SIGNATURE: Christian Martinez PT PATIENT NAME: Son Colunga DATE: December 08, 2017 TIME: 11:31 AM PAGER/CONTACT #: [phone] THERAPY NT Observed: 12/08/2017 Status: COMPLETED Source: [place] 10:23 AM CLINIC OTHER CAMPUS REPOSITORY HNO ID: [id number] Author: Jennifer CatOtr/Oracio Perea OT Service: Occupational Therapy Author Type: Occupational Therapist Type: Therapy (PT/OT/Speech/Resp) Filed: 12/08/2017 10:33 AM Note Text: Occupational Therapy Evaluation SERVICE DATE: 12/08/2017 SERVICE TIME: 0945 to 1010 ROOM: [place] [address] Admitting physician cosign request is for the purpose of certifying the plan of care for regulatory requirements. Recommended Discharge Disposition: Subacute/SNF Recommended Discharge Disposition Comments: If patient/family decline SNF, rec home with 24 hr assist, home OT, and continued C Justification For Post Acute Needs: Good family support;Good sitting tolerance;Motivated;Willing to participate;Need for assistance may exceed support available OT Recommendations to Nursing: Assist of 1 person to bathroom for ADL?s;OOB for meals;Equipment to be used in room;Other: See Comment (Unsteady with bathroom transfer; rec Assist x2 for safety) Equipment To Be Used In Room: Wheeled Walker OT 6 Clicks Score: 15 Precautions/Activity Restrictions: Bed/Chair Alarm;Fall Risk;Lines/Tubes/Drains Isolation Type: None ASSESSMENT: OT Evaluation High Complexity: Occupational Profile - Expansive review of patient's medical record completed including patient's physical, cognitive, and psychosocial history (please see current hospital course of evaluation) . Occupational Performance - Pt presents with mod-max deficits in grooming, UE bathing/dressing, LE bathing/dressing, functional mobility, functional transfers, decreased safety awareness, decreased insight into deficits, decreased activity tolerance (weakness / more unsteady than prior level of functioning) Complexity in Clinical Decision Making - The extent of clinical reasoning was complex, multiple treatment options present for the patient, need for modification during the evaluation was significant, the following comorbidities affect patient's occupational performance: MS Tolerance Limited By Fatigue Occupational Therapy Problem List: Cognitive Deficit;Education Deficit;Safety Deficits;Impaired Self Care;Decreased Activity Tolerance;Functional Mobility Impairment;Motor Planning Difficulties Patient /Caregiver Goals: Go Home Goals for Plan of Care: Grooming with: Independent (seated) Chair Transfer with: Minimal Assistance Toilet Transfer with: Minimal Assistance Tolerate (minutes of functional activity): 20 Functional Activity with: Contact Guard Assistance Additional Goal 1: Pt will demo good safety with ADLs and functional mobility Additional Goal 2: Pt will follow 2 step commands Demonstrate Competence With Education with: Verbal Cues Only Transfer: sit-stand: CGA Rehab Potential: Good PLAN: Treatment Frequency (times per week): 3 (1-3) Current admission Treatment Interventions: Education;Self Care / Home Management;Energy Conservation Training;Strengthening;Functional Mobility Training;Cognitive Training Plan of Care developed with: Patient TREATMENT INTERVENTIONS: Therapy Diagnosis: Reduced mobility-other;Decreased activities of daily living (ADL);Muscle Weakness (generalized);Signs and Symptoms Involving Cognitive Functions and Awareness;Unsteadiness on feet;Abnormalities of gait and mobility-other;Lack of coordination-other Interventions Provided: Evaluation;Self Long Term Management (27568);Therapeutic Activity (15351) $ Evaluation-High (84959) Billed Units: 1 unit Therapeutic Activity (19249) Treatment Minutes: 8 1 unit Skilled Intervention(s): Instructed patient in safe sit-stand transfer at edge of bed; provided mod verbal cues for safe hand and body placement. Pt demo'd min impulsivity (standing at edge of bed); required min cuing to follow directions. Educated/demonstrated proper hand and body placement to increase wheeled walker safety during functional mobility and ADL tasks. Provided fall guarding assistance during functional mobility to bathroom due to mod-max unsteadiness / weakness; provided increased physical assist (using gait belt) to balance patient during transfer to chair from bathroom. Would recommend assist x2 to bathroom for fall prevention purposes while patient in hospital. Edu pt on fall prevention strategies, reinforcing the use of their call light / up with assistance for functional mobility; Pt left up in chair with chair alarm activated, call light in reach upon OT exit. Self Long Term Management (25354) Treatment Minutes: 2 0 units Skilled Intervention(s): Facilitated seated (in chair) ADL (hair combing) to increase ADL participation, increase activity tolerance in unsupported sitting. Provided set up assistance and min verbal cues to safely complete ADL. Instructed patient to complete self-care / grooming tasks daily to increase ADL participation and UB activity tolerance. Total Timed Code Treatment Minutes: 10 Total Treatment Time (minutes): 25 FUNCTIONAL G CODE: OT 6 Clicks Score: 15 (12/08/17944) Self Care Current Status (G8987): CK (12/08/17944) Self Care Goal Status (G8988): CJ (12/08/17944) Based on clinical assessment and the score on the 6 Clicks Functional Assessment Tool, the G code and corresponding severity modifiers are documented above. Physician signature certifies treatment plan of care established above for the period of 12/08/2017 through 12/22/2017. SUBJECTIVE: Current Hospital Course: Chart reviewed 52-year-old male, history of MS presents with weakness Per chart: Reports he has slow but continuous progression of MS PAST MEDICAL HISTORY Diagnosis Date - Acute dermatitis - Itching - Multiple sclerosis (HCC) 08/28/2014 PAST SURGICAL HISTORY Procedure Laterality Date - NONE - PAST SURGICAL HISTORY OF lypoma on neck; unable to perform surgery Patient Report: Pt supine on arrival, agreeable to session. Pt states his aid comes 5 hr/day, 7day/week and assists with bathing, dressing, meals, and cleaning; states he does not currently have 24hr assist. Pt somewhat agreeable to rehab at d/c, may need continued encouragement if weakness/unsteadiness persists. No c/o pain at this time. Pt frequently apologizes throughout session, stating I do that a lot. Home Environment Patient Lives With: Self/Alone Assistance Available: multimedia programmer (Aids 7 d/week for 5 hr/day) Entry To Home: Elevator (apartment- senior care) Number Of Stairs To Bed/Bath: 0 Laundry: 2nd floor? Equipment Owned: Rollator Prior Functional Level: Required Assistance;History of Falls Assistance Required With: Self Care Prior Functional Level Comments: Aid assists with ADLs and IADLs OBJECTIVE: Responsiveness: Alert Follows Commands: 1-step Commands Attention Deficits: Distractible Memory Deficits: Short Term Executive Function Deficits: Sequencing;Judgement;Insight to Deficits;Problem Solving;Motor Planning;Safety Awareness Sequencing Deficit: Moderate impairment Safety Awareness Deficit: Moderate impairment Judgement Deficit: Moderate impairment Insight to Deficits: Moderate impairment Problem Solving Deficit: Moderate impairment Motor Planning Deficit: Moderate impairment CURRENT FUNCTIONAL STATUS: Current Activities of Daily Living Assist Level Feeding Set Up Grooming Moderate Assistance (hair combing seated in chair; unable to comp safely standing) Bathing Upper Body Moderate Assistance Bathing Lower Body Maximal Assistance Dressing Upper Body Moderate Assistance Dressing Lower Body Maximal Assistance Toileting Moderate Assistance Functional Mobility Assist Level Rolling Contact Guard Assistance Supine to Sit Contact Guard Assistance Sit to Supine Scooting Sit to Stand Moderate Assistance Stand to Sit Moderate Assistance Bed to Chair Toilet/Commode Moderate Assistance Functional Mobility Moderate Assistance Wheeled Walker Hand Dominance: Right Range Of Motion: Within Functional Limits Strength: Within Functional Limits Balance: Dynamic Standing Dynamic Standing Balance: Moderate Assistance Activity Tolerance: Standing Activity Standing Activity: Functional mobility to bathroom; toilet transfer; transfer up to chair Standing Activity Tolerance (in minutes): 6 Please see discipline specific clinical documentation flowsheet for complete details for this therapy evaluation/treatment. SIGNATURE: SIGRID Bright/Maura PATIENT NAME: Son Colunga DATE: December 08, 2017 TIME: 10:23 AM PAGER: [phone] CASE MGT INIT Observed: 12/08/2017 Status: COMPLETED Source: [facility] 10:18 AM CLINIC OTHER CAMPUS REPOSITORY HNO ID: [id number] Author: Sena (Rn) RUSS Chopra Service: Care Management Author Type: Registered Nurse Type: Care Mgt Initial Assessment Filed: 12/08/2017 10:25 AM Note Text: CARE MANAGEMENT: ASSESSMENT AND DISCHARGE PLAN SERVICE DATE: 12/08/2017 SERVICE TIME: 10:18 AM PRIMARY CARE PHYSICIAN: Bassem Boo MD ADMISSION STATUS: Observation POTENTIAL DISCHARGE PLANS Home Long Term 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 Yes Patient's transition needs and plan for meeting these needs: YES Does the patient have an acute stroke diagnosis, or has the patient had a stroke during this admission? No ADVANCE DIRECTIVES: Does Patient Have Advance Directives? YES, YESENIA IS HCPOA Does Patient Have Concerns About Advance Directives? No PRIOR TO ADMISSION: Baseline Mental Status: Alert AND Oriented, Person, Place , Time and Situation Functional Status: Needs Assistance Does Patient Currently Receive Any Community Services or Home Care? Home Health Care Agency: [facility]; Phone: .; Active. Equipment Prior to Admission: Rollator Scooter Tub bench/chair Walker Wheelchair HEALTH: Health Issues Impacting Discharge Plan: None Health Literacy Issues: No PSYCHOSOCIAL: Is the Patient Psychosocially Complex? No Family/Patient Understanding of Illness/Diagnosis: YES Medication Adherence: Do you forget to take your medications? I do not forget to take my medication Have you ever stopped taking medications because you felt worse? None of the time Have you ever taken less of your medication than what was prescribed by your doctor? None of the time In the past 3 months, have you had issues obtaining one or more of your medications? None of the time Are you interested in bedside delivery of your medications? No Food Concerns: In the Last Month, Have You had Trouble Getting Food? No trouble getting food During the Last Month, Have You Worried Whether Your Food Would Run Out Before You Had Enough Money to Buy More? No Psychosocial Needs: None UTILIZATION: Last Admission Date: none Is this Within the Past 30 days? No Has the Patient Been in a Long Term Facility in the Past 30 days? No FREEDOM OF CHOICE EXPLAINED: N/A HANDOFF COMMUNICATION: . PATIENT FROM HOME ALONE, ACTIVE WITH HOME CARE [facility] FAMILY 5 HOURS A DAY. ASSIST WITH ALL ADL;S. AWAIT PT/OT EVAL FOR DC PLAN SIGNATURE: Sena Chopra RN PATIENT NAME: Son Colunga DATE: December 08, 2017 TIME: 10:18 AM PAGER/CONTACT #: [phone] VITAMIN B12 Collected: 12/08/2017 Status: F Source: [facility] 6:15 AM HEALTH SYSTEM REPOSITORY TYPE CODE TESTS RESULT OUT OF REFERENCE UNITS RANGE LAB B12(LOINC) 193-986 pg/mL High Vitamin B12 >2000 Performed By: #### B12 #### [place] [address] HEMOGRAM Collected: 12/08/2017 Status: F Source: [facility] 3:25 AM HEALTH SYSTEM REPOSITORY TYPE CODE TESTS RESULT OUT OF REFERENCE UNITS RANGE LAB WBC(LOINC) 4.23-9.07 thou/cmm WBC 7.02 LAB RBC(LOINC) 4.63-6.08 mil/cmm Low RBC 4.27 LAB HGB(LOINC) 13.7-17.5 g/dL Hgb 13.8 LAB HCT(LOINC) 40.1-51.0 % Hct 41.5 LAB MCV(LOINC) 83.2-95.6 fl High MCV 97.2 LAB MCH(LOINC) 25.7-32.2 pg High MCH 32.3 LAB MCHC(LOINC) 32.3-36.5 % MCHC 33.3 LAB RDW(LOINC) 11.6-14.4 % RDW 12.5 LAB RDWSD(LOINC 36.1-45.8 fl ) RDW SD 44.1 LAB PLT(LOINC) 141-365 thou/cmm Platelet 238 LAB MPV(LOINC) 8.7-12.0 fl MPV 9.9 Performed By: #### CBC1 #### [facility] [address] [place] [address] TSH, 3RD GENERATION Collected: 12/08/2017 Status: F Source: [facility] 3:25 AM HEALTH SYSTEM REPOSITORY TYPE CODE TESTS RESULT OUT OF REFERENCE UNITS RANGE LAB TSH3(LOINC 0.358-3.740 uIU/mL ) TSH, 3rd generation 0.627 Performed By: #### TSH3 #### [facility] [address] [place] [address] BASIC PANEL Collected: 12/08/2017 Status: F Source: [facility] 3:25 AM HEALTH SYSTEM REPOSITORY TYPE CODE TESTS RESULT OUT OF REFERENCE UNITS RANGE LAB NA(LOINC) 136-145 mEq/L Sodium Blood 138 LAB K(LOINC) 3.5-5.1 mEq/L Potassium Blood 3.8 LAB CL(LOINC) 98-107 mEq/L Chloride High Blood 109 LAB CO2(LOINC) 21-32 mEq/L CO2 Blood 23 LAB GLU(LOINC) 70-99 mg/dL Glucose Blood 91 LAB BUN(LOINC) 7-18 mg/dL BUN Blood 9 LAB CREA(LOINC 0.67-1.17 mg/dL ) Low Creatinine Blood 0.61 LAB CA(LOINC) 8.5-10.1 mg/dL Calcium Blood 8.5 LAB ANGAP(LOIN 8-16 C) Anion Gap 10 Performed By: #### P8 #### [facility] [address] [place] [address] MAGNESIUM BLOOD Collected: 12/08/2017 Status: F Source: [facility] 3:25 AM HEALTH SYSTEM REPOSITORY TYPE CODE TESTS RESULT OUT OF REFERENCE UNITS RANGE LAB MAG(LOINC) 1.6-2.6 mg/dL Magnesium Blood 2.0 Performed By: #### MAG #### [place] [address] PHOSPHORUS BLOOD Collected: 12/08/2017 Status: F Source: [facility] 3:25 AM HEALTH SYSTEM REPOSITORY TYPE CODE TESTS RESULT OUT OF REFERENCE UNITS RANGE LAB PHOS(LOINC 2.5-4.9 mg/dL ) Phosphorus Blood 3.1 Performed By: #### PHOS #### [facility] [address] [place] [address] MDRD GFR Collected: 12/08/2017 Status: F Source: [facility] 3:25 AM HEALTH SYSTEM REPOSITORY TYPE CODE TESTS RESULT OUT OF RANGE REFERENCE UNITS LAB GFRFN(LOINC >60mL/min/1.73m ) 2 eGFR >60 Result Comment: If the patient is , multiply the result by 1.210. Performed By: #### GFR #### [facility] [address] [place] [address] PROCALCITONIN Collected: 12/08/2017 Status: F Source: [facility] 3:25 AM HEALTH SYSTEM REPOSITORY TYPE CODE TESTS RESULT OUT OF REFERENCE UNITS RANGE LAB PRCAS(LOIN ng/mL C) Procalcitonin 0.07 Result Comment: Levels <0.50 ng/mL represent a low risk of severe sepsis and/or septic shock, while levels >2.00 ng/mL represent an elevated risk of severe sepsis and/or septic shock. Levels <0.50 ng/mL do not exclude infection, as infections or systemic infections in early stages (<6hrs) can be associated with low concentrations. Levels between 0.50-2.00 ng/mL should be interpreted in the clinical context of the patient, as a variety of conditions such as astudillo, trauma, surgery and severe cardiogenic shock can cause procalcitonin elevations. Performed By: #### PRCAS #### [place] [address] TOTAL 25-OH VITAMIN Collected: 12/08/2017 Status: F Source: [facility] 3:25 AM HEALTH SYSTEM REPOSITORY TYPE CODE TESTS RESULT OUT OF REFERENCE UNITS RANGE LAB 25VD1(LOINC 30.0-100.0 ng/mL ) Total 25-OH 38.8 Vitamin D Performed By: #### 25VD1 #### [facility] [address] [place] [address] Observed: 12/07/2017 Status: F Source: [email or web address] CULT URINE 10:20 PM HEALTH SYSTEM REPOSITORY Test performed at [facility] Mixed skin nacho. No further identification or susceptibility testing will be performed. Please submit a new specimen. Plates will be held for 5 days. Performed By: #### C_URI #### [facility] [address] [place] [address] HISTORY PHYSICAL Observed: 12/07/2017 Status: COMPLETED Source: [place] 8:53 PM CLINIC OTHER CAMPUS REPOSITORY HNO ID: [id number] Author: Nelson Blas Service: Hospital Medicine Author Type: Physician Type: HANDP Filed: 12/07/2017 9:20 PM Note Text: DEPARTMENT OF HOSPITAL MEDICINE HISTORY AND PHYSICAL EXAM SERVICE DATE: 12/07/2017 SERVICE TIME: 8:53 PM Primary Care Physician: Bassem Boo MD NIGHT AND WEEKEND COVERAGE: After 7pm, please call cross cover pager #[phone] Subjective CHIEF COMPLAINT: Generalized weakness HPI: This is a 52 year old male with a past medical history as mentioned below who presented for generalized weakness when he used the bathroom today. He reports he was fine and at his usual lawrence until he went to bathroom to move his bowel. He had difficulty going. Then he tried to get and fell to the floor and could not get up. He denies any LOC, dizziness or lightheadedness, chest pain, dyspnea. He reports he has been eating and drinking well. Denies any fever or chill, dysuria or diarrhea or sorethroat, headache, nasal congestion, cough, V/V abdominal pain, new rash or swollen joint. Reports recent weight gain of 20 lbs He has been taking his infection for MS under the care of neurologist at [facility]. Reports he has slow but continuous progression of MS PAST MEDICAL HISTORY Diagnosis Date - Acute dermatitis - Itching - Multiple sclerosis (HCC) 08/28/2014 PAST SURGICAL HISTORY Procedure Laterality Date - NONE - PAST SURGICAL HISTORY OF lypoma on neck; unable to perform surgery FAMILY HISTORY Problem Relation Age of Onset - Cancer Father Pancreas - Cancer Mother Liver Social History Substance Use Topics - Smoking status: Former Smoker Packs/day: 2.00 Years: 30.00 Types: Cigarettes Quit date: 06/02/2015 - Smokeless tobacco: Never Used Comment: hx of upto 2 packs of cigarette for 30 years. quit few years back - Alcohol use No MEDICATIONS: Reviewed Prescriptions Prior to Admission: Methylcellulose, Laxative, (CITRUCEL) 500 mg tab Take 1 tablet by mouth three times daily with meals. Disp: 90 tablet Rfl: 5 polyethylene glycol 3350 (MIRALAX) 17 gram/dose powder Take 17 g by mouth once daily. Disp: 510 g Rfl: 0 12/07/2017 at Unknown time PARoxetine (PAXIL) 30 mg tablet Take 1 tablet by mouth once daily. Disp: 90 tablet Rfl: 0 12/07/2017 at Unknown time Cyanocobalamin (VITAMIN B-12) 2,500 mcg subl Dissolve 1 tablet under the tongue once daily. Disp: 90 tablet Rfl: 3 12/07/2017 at Unknown time OCRELIZUMAB (OCREVUS INTRAVEN.) Inject intravenously once every 6 months. Disp: Rfl: docusate sodium (COLACE) 100 mg capsule Take 1 capsule by mouth once daily. Disp: 30 capsule Rfl: 1 12/07/2017 at Unknown time Cholecalciferol, Vitamin D3, 2,000 unit cap Take 1 capsule by mouth once daily. Disp: 30 capsule Rfl: 12 12/07/2017 at Unknown time MULTIVITAMIN ORAL Take by mouth. Disp: Rfl: ALLERGIES No Known Allergies REVIEW OF SYSTEM: All other systems were reviewed and were negative except as per HPI. Objective PHYSICAL EXAM: BP 128/70 Pulse 93 Temp (Src) 97.9 (Oral) Resp 18 Ht 5' 7.008 (1.70m) Wt 151 lb 0.2 oz (68.5kg) SpO2 97% BMI 23.65 kg/(m2). Gen: Alert, oriented, no distress, cooperative, rash over chest (chronic), appears cachectic HENT: NCAT, no oral lesions. Poor oral hygiene but no tenderness Eyes: nonicteric, EOMI Neck: supple, no JVD CV: RRR, normal S1,S2, no murmur, Pulses: radial and DP Resp: non-labored, CTBL, no wheezing, no crackles GI: soft, ND, NT Neuo: no focal deficit, Motor: strength 4/5 in Left LE and 4-5 in right LE (baseline) . Sensory: intact MS: normal ROM, no LE edema, no deformity Skin: warm, no rash Psych: appropriate mode and affect DATA: Diagnostic tests reviewed for today's visit: Most recent labs and imaging results. CBC: Recent Labs 12/07/17 1500 WBC 18.95* RBC 5.01 HB 16.2 HCT 48.1 PLT 265 MCV 96.0* MCH 32.3* MPV 9.8 RDW 12.4 Coags: No results for input(s): INR, APTT in the last 24 hours. Invalid input(s): PT BMP: Recent Labs 12/07/17 1500 NA 137 K 3.7 CHLOR 107 CO2 25 BUN 14 CREAT 0.72 GLUC 110* CMP: Recent Labs 12/07/17 1500 NA 137 K 3.7 CHLOR 107 CO2 25 BUN 14 CREAT 0.72 GLUC 110* CA 9.5 ANION 9 Assessment/Plan IMPRESSION: 1. Generalized weakness: no obvious precipitating factors noted. Has baseline weakness due to MS. Weakness currently seems to be at baseline on current exam. 2. MS: nothing to suggest acute flare up. seems to have progressive decline. Sees a neurologist Dr Dakota Durbin at [facility]. On immunologic. Walks with walker. Needs help with ADL/IADL like cooking, bathing. 3. Leukocytosis with neutrophilia: etiology unclear. So far UA, CXR, lactic acid, rapid flu unrevealing. No fever. 4. Hx of subcentimeter lung nodules: has significant hx of smoking. Needs outpatient follow up scan. 5. Weight: even though he appears cachectic, he reports that he is gaining weight. Has hx of failure to thrive PLAN: Check TSH, Vitamin D, vitamin B12. Prealbumin B Cx and U Cx. No ABx yet. Repeat WBC. Monitor for fever. If leukocytosis persist- consider Panorex (very poor dental hygiene) and CT A/P. PT/OT VTE Prophylaxis: Lovenox 40mg Sub Q Daily Disposition: Home with [facility] and Extended Care Facility Plan of care discussed with: Patient Code Status: FULL CODE SIGNATURE: Nelson Blas MD PATIENT NAME: Son Colunga DATE: December 07, 2017 TIME: 8:53 PM PAGER/CONTACT #: [phone] ED PROV NOTE Observed: 12/07/2017 Status: COMPLETED Source: [place] 7:23 PM CLINIC OTHER CAMPUS REPOSITORY HNO ID: [id number] Author: Claudio Saeed MD Service: Emergency Medicine Author Type: Physician Type: ED Provider Notes Filed: 12/07/2017 7:24 PM Note Text: Attending Note I have personally performed a face to face assessment of the patient and have reviewed the resident's note. I discussed the management plan and melo decisions were reviewed with the resident. I was present for all procedures. Please see resident's note for additional details. My melo findings include: HPI: 52-year-old male, history of MS presents with weakness. Patient states that he has been increasingly weak over the last 2 days. Patient denies any cough or sick contacts. Patient denies any urinary symptoms. Patient denies any neck, back or abdominal pain. Digital Campaign Specialist states that patient has been increasingly weak and she is concerned that she is unable to care for the patient any longer.Patient denies any current nausea, vomiting, fevers or chills. Patient denies any chest pain or shortness of breath. Patient has no other complaints at this time. Past medical history: Reviewed Review of system: Please see above history of present illness. All other systems reviewed are negative. Physical exam: HEENT: Oropharynx is not erythematous and edematous. No exudate. No uvula deviation. Tympanic membranes clear bilaterally. Pupils equal, round, reactive bilaterally. No nasal drainage noted. Heart regular rate and rhythm, no gallops, rubs, or murmurs. Lungs sounds were clear and equal bilaterally., No rhonchi, wheezes or rales. Abdomen soft, nontender, nondistended. Normal bowel sounds. Nonacute abdomen. Extremities: Upper and lower extremity pulses equal bilaterally. Back: There is no midline thoracic or lumbar tenderness to palpation. No step-off or crepitance. Neuro: Cranial nerves II through XII are intact. Upper and lower motor and sensory are intact. No focal neurological deficits. Medical decision making: Laboratory workup was remarkable for a white count of 18. Urine and chest x-ray unremarkable for any acute findings. Skin showed no obvious lesions. Lower suspicion for ASSIGNMENT DESK EDITOR infection. Etiology of elevated white count 9 at this time. Patient will be admitted due to increasing weakness, possible placement. Claudio Saeed MD 12/07/17 1924 PLAN OF CARE Observed: 12/07/2017 Status: COMPLETED Source: [place] 7:20 PM CLINIC OTHER CAMPUS REPOSITORY HNO ID: [id number] Author: Buzz Mitchell Territory Business Manager) Service: (none) Author Type: Camp Dining Room Attendant Type: Plan of Care Filed: 12/07/2017 7:20 PM Note Text: MEDICATION HISTORY Patient Name:.Son Colunga : 1965 Source of history:Patient: Reliability of source: Appears reliable, clearly identified: Medication name Medication Nonadherence Identified: No barriers noted The above information represents the best possible medication history: Yes Additional comments: N/A Allergies: ALLERGIES No Known Allergies Preferred Pharmacy: [facility] 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 Yes polyethylene glycol 3350 (MIRALAX) 17 gram/dose powder Take 17 g by mouth once daily. 12/07/2017 at Unknown time Yes PARoxetine (PAXIL) 30 mg tablet Take 1 tablet by mouth once daily. 12/07/2017 at Unknown time Yes Cyanocobalamin (VITAMIN B-12) 2,500 mcg subl Dissolve 1 tablet under the tongue once daily. 12/07/2017 at Unknown time Yes OCRELIZUMAB (OCREVUS INTRAVEN.) Inject intravenously once every 6 months. Yes docusate sodium (COLACE) 100 mg capsule Take 1 capsule by mouth once daily. 12/07/2017 at Unknown time Yes Cholecalciferol, Vitamin D3, 2,000 unit cap Take 1 capsule by mouth once daily. 12/07/2017 at Unknown time Yes MULTIVITAMIN ORAL Take by mouth. Buzz Mitchell Territory Business Manager pager [phone] December 07, 2017 7:20 PM Observed: 12/07/2017 Status: F Source: [facility] BLOOD 6:36 PM HEALTH SYSTEM REPOSITORY Test performed at [facility] No growth Performed By: #### C_BLO #### [place] [address] Observed: 12/07/2017 Status: F Source: [facility] BLOOD 6:09 PM HEALTH SYSTEM REPOSITORY Test performed at [facility] No growth Performed By: #### C_BLO #### [place] [address] ED NOTE Observed: 12/07/2017 Status: COMPLETED Source: [place] 6:06 PM CLINIC OTHER CAMPUS REPOSITORY HNO ID: [id number] Author: Luis Quevedo (Tech) Service: Emergency Medicine Author Type: Camp Dining Room Attendant Type: ED Notes Filed: 12/07/2017 6:28 PM Note Text: Blood cultures drawn and sent. URINALYSIS ROUTINE Collected: 12/07/2017 Status: F Source: [facility] 4:52 PM HEALTH SYSTEM REPOSITORY TYPE CODE TESTS RESULT OUT OF REFERENCE UNITS RANGE LAB COLOR(LOIN C) Urine Color YELLOW LAB APPUR(LOIN C) Urine Appearance CLEAR LAB GLUUR(LOIN Negative mg/dL C) Glucose Urine NEGATIVE LAB KETON(LOIN Negative mg/dL C) Ketone Urine NEGATIVE LAB HGBUR(LOIN Negative C) Hemoglobin,Urine NEGATIVE LAB PROTU(LOIN Negative mg/dL C) Protein Urine NEGATIVE LAB NITRI(LOIN Negative C) Nitrites Urine NEGATIVE LAB BILIU(LOIN Negative C) Bilirubin Urine NEGATIVE LAB SPG(LOINC) 1.005-1.030 Specific [place], Ur 1.025 LAB PHUR(LOINC 5.0-8.0 ) pH,Urine 6.0 LAB UROBI(LOIN 0.0-1.0 EU/dL C) Urobilinogen,Ur 0.2 LAB LEUKO(LOIN Negative C) Leukocytes NEGATIVE Esterase LAB RBCU1(LOIN 0.0-5.0 /hpf C) High RBC,Urine 5.1 LAB WBCU1(LOIN 0.0-5.0 /hpf C) WBC, Urine 1.9 LAB EPIT1(LOIN 0.0-5.0 /hpf C) Ep Cells Urine 0.5 LAB BACT1(LOIN None C) Bacteria Urine NONE LAB HYCA1(LOIN 0.0-1.0 /lpf C) Hyaline High Cast 1.8 Performed By: #### URIN2 #### [facility] [address] [place] [address] ED NOTE Observed: 12/07/2017 Status: COMPLETED Source: [place] 4:52 PM CLINIC OTHER CAMPUS REPOSITORY HNO ID: [id number] Author: Prashanth Spivey) RUSS Hoffman Service: Emergency Medicine Author Type: Registered Nurse Type: ED Notes Filed: 12/07/2017 6:03 PM Note Text: Clean catch urine specimen obtained and sent. LACTIC ACID Collected: 12/07/2017 Status: F Source: [facility] 4:25 PM HEALTH SYSTEM REPOSITORY TYPE CODE TESTS RESULT OUT OF REFERENCE UNITS RANGE LAB LAC(LOINC) 0.4-2.0 mEq/L Lactic Acid 1.4 Performed By: #### LAC #### [facility] [address] [place] [address] CHEST 2 VIEWS Observed: 12/07/2017 Status: F Source: [facility] 3:48 PM HEALTH SYSTEM REPOSITORY Performed at [facility] APPROVED BY: Chris Mejia MD EXAMINATION: CHEST RADIOGRAPH (2 VIEW FRONTAL & LATERAL) Clinical History: Weakness. M: XC2_4 Comparison: 04/27/2016. RESULT: Lines, tubes, and devices: quality assurance monitor body leads. Lungs and pleura: Lungs are clear. No infiltrates or effusions. Cardiomediastinal silhouette: Heart size is normal. Other: Density associated with the posterior lateral aspect of the right seventh rib most likely represents overlap of shadows or possibly healing rib fracture or density in the adjacent lung. IMPRESSION: No definite acute infiltrate or effusion. Density seen overlying the right seventh rib may represent healing right rib fracture or nodular density in the adjacent lung. Recommend upright PA and latera l chest x-ray when patient is stable to further evaluate. ED NOTE Observed: 12/07/2017 Status: COMPLETED Source: [place] 3:06 PM CLINIC OTHER CAMPUS REPOSITORY HNO ID: [id number] Author: Son (Rn) RUSS Townsend Service: Emergency Medicine Author Type: Registered Nurse Type: ED Notes Filed: 12/07/2017 3:06 PM Note Text: Pt's cxr called for HEMOGRAM/DIFF Collected: 12/07/2017 Status: F Source: [facility] 3:00 PM HEALTH SYSTEM REPOSITORY TYPE CODE TESTS RESULT OUT OF REFERENCE UNITS RANGE LAB WBC(LOINC) 4.23-9.07 thou/cmm WBC High 18.95 LAB RBC(LOINC) 4.63-6.08 mil/cmm RBC 5.01 LAB HGB(LOINC) 13.7-17.5 g/dL Hgb 16.2 LAB HCT(LOINC) 40.1-51.0 % Hct 48.1 LAB MCV(LOINC) 83.2-95.6 fl MCV High 96.0 LAB MCH(LOINC) 25.7-32.2 pg MCH High 32.3 LAB MCHC(LOINC 32.3-36.5 % ) MCHC 33.7 LAB RDW(LOINC) 11.6-14.4 % RDW 12.4 LAB RDWSD(LOIN 36.1-45.8 fl C) RDW SD 43.5 LAB PLT(LOINC) 141-365 thou/cmm Platelet 265 LAB MPV(LOINC) 8.7-12.0 fl MPV 9.8 LAB SEG(LOINC) % Seg Neutrophil 91.0 LAB IGRE(LOINC % ) Immature Grans 0.50 LAB LYMPH(LOIN % C) Lymphocyte 2.4 LAB MNO(LOINC) % Monocyte 5.9 LAB EOSIN(LOIN % C) Eosinophil 0.1 LAB BASO(LOINC % ) Basophil 0.1 LAB SEGN(LOINC 1.78-5.38 thou/cmm ) Abs. High Neut 17.24 LAB IGAB(LOINC 0.00-0.05 thou/cmm ) Abs High Immature Grans 0.09 LAB LYMN(LOINC 0.84-2.85 thou/cmm ) Low Abs. Lymph 0.45 LAB MONON(LOIN 0.30-0.82 thou/cmm C) Abs. High [place]ala 1.12 LAB EOSN(LOINC 0.04-0.54 thou/cmm ) Low Abs. Eosin 0.02 LAB BASON(LOIN 0.01-0.08 thou/cmm C) Abs. Baso 0.02 Result Comment: Smear scanned; tech agrees with automated differential Performed By: #### [id number] #### [place] [address] BASIC PANEL Collected: 12/07/2017 Status: F Source: [facility] 3:00 HEALTH SYSTEM REPOSITORY TYPE CODE TESTS RESULT OUT OF REFERENCE UNITS RANGE LAB NA(LOINC) 136-145 mEq/L Sodium Blood 137 LAB K(LOINC) 3.5-5.1 mEq/L Potassium Blood 3.7 LAB CL(LOINC) 98-107 mEq/L Chloride Blood 107 LAB CO2(LOINC) 21-32 mEq/L CO2 Blood 25 LAB GLU(LOINC) 70-99 mg/dL Glucose High Blood 110 LAB BUN(LOINC) 7-18 mg/dL BUN Blood 14 LAB CREA(LOINC 0.67-1.17 mg/dL ) Creatinine Blood 0.72 LAB CA(LOINC) 8.5-10.1 mg/dL Calcium Blood 9.5 LAB ANGAP(LOIN 8-16 C) Anion Gap 9 Performed By: #### P8 #### [facility] [address] [place] [address] MDRD GFR Collected: 12/07/2017 Status: F Source: [facility] 3:00 PM HEALTH SYSTEM REPOSITORY TYPE CODE TESTS RESULT OUT OF RANGE REFERENCE UNITS LAB GFRFN(LOINC >60mL/min/1.73m ) 2 eGFR >60 Result Comment: If the patient is , multiply the result by 1.210. Performed By: #### GFR #### [facility] [address] [place] [address] Observed: 12/07/2017 Status: F Source: [facility] RAPID INFLUENZA A/B AG 2:45 PM HEALTH SYSTEM REPOSITORY Test performed at [facility] Presumptive negative for the presence of Influenza A antigen. Presumptive negative for the presence of Influenza B antigen. It is suggested that negative test results should be confirmed by cell culture, if warranted. Performed By: #### INAB3 #### [facility] [address] [place] [address] ED PROV NOTE Observed: 12/07/2017 Status: COMPLETED Source: [place] 2:43 PM CLINIC OTHER CAMPUS REPOSITORY HNO ID: [id number] Author: Claudio Saeed MD Service: Emergency Medicine Author Type: Physician Type: ED Provider Notes Filed: 12/07/2017 7:47 PM Note Text: ED Provider Note Patient Name: Son Colunga SERVICE DATE: 12/07/17 History Patient presents with: Weakness HPI Comments: 52-year-old male with history of MS presents today for generalized weakness. States he was sitting on the toilet attempting to have a bowel movement and straining because he suffers from constipation and feels that he may have hyperventilated. He felt weak upon attempt to ambulate and fell in the bathroom, so slightly unable to get up. Called EMS for assistance and they brought him in for further evaluation. Patient reports history of malnutrition, but does take boost supplements. Denies head injury or loss of consciousness. Denies any injuries from the fall. Denies other systemic symptoms such as fever, chills, URI or urinary symptoms. Denies abdominal pain, nausea, vomiting. Denies other physical complaint. Patient reports he lives alone and typically ambulates with a roller walker. His power of criminal attorney is present and states that she feels he will need placement very soon. He has planned to eventually go to [place]. History provided by: Patient PAST MEDICAL HISTORY Diagnosis Date - Acute dermatitis - Itching - Multiple sclerosis (HCC) 08/28/2014 PAST SURGICAL HISTORY Procedure Laterality Date - NONE - PAST SURGICAL HISTORY OF lypoma on neck; unable to perform surgery FAMILY HISTORY Problem Relation Age of Onset - Cancer Father Pancreas - Cancer Mother Liver Social History Social History Main Topics - Smoking status: Former Smoker Packs/day: 0.50 Years: 30.00 Types: Cigarettes Quit date: 06/02/2015 - Smokeless tobacco: Never Used - Alcohol use No - Drug use: Yes Comment: Past use. - Sexual activity: Not Asked ALLERGIES No Known Allergies Review of Systems Constitutional: Negative for chills and fever. HENT: Negative for trouble swallowing and voice change. Eyes: Negative for pain and redness. Respiratory: Negative for cough and shortness of breath. Cardiovascular: Negative for chest pain and palpitations. Gastrointestinal: Positive for constipation. Negative for abdominal pain, diarrhea, nausea and vomiting. Endocrine: Negative for cold intolerance and heat intolerance. Genitourinary: Negative for dysuria and frequency. Skin: Negative for color change and rash. Neurological: Positive for weakness. Negative for seizures, syncope, light-headedness, numbness and headaches. All other systems reviewed and are negative. Physical Exam BP 111/74 Pulse 102 Temp (Src) 97.9 (Oral) Resp 18 Ht 5' 7 (1.70m) Wt 151 lb (68.5kg) SpO2 96% BMI 23.64 kg/(m2). Physical Exam Constitutional: He is oriented to person, place, and time. He appears well-developed. No distress. Patient appears somewhat malnourished, thin build, older than stated age. HENT: Head: Normocephalic and atraumatic. Right Ear: External ear normal. Left Ear: External ear normal. Mucous membranes tachycardia Eyes: Conjunctivae and EOM are normal. Pupils are equal, round, and reactive to light. Neck: Normal range of motion. Neck supple. No JVD present. No tracheal deviation present. No midline cervical spinal tenderness to palpation or step-offs Cardiovascular: Normal heart sounds. Exam reveals no gallop and no friction rub. No murmur heard. Heart rate slightly tachycardic and regular Pulmonary/Chest: Effort normal and breath sounds normal. No stridor. No respiratory distress. He has no wheezes. He has no rales. He exhibits no tenderness. Abdominal: Soft. Bowel sounds are normal. He exhibits no distension. There is no tenderness. There is no rebound and no guarding. Musculoskeletal: Normal range of motion. He exhibits no edema or tenderness. No midline TLS spine tenderness or step-offs, moving all extremities appropriately with no apparent injuries. Neurological: He is alert and oriented to person, place, and time. No cranial nerve deficit. Skin: Skin is warm and dry. Nursing note and vitals reviewed. Diagnostic Testing ED Labs Ordered and Reviewed BASIC METABOLIC PANEL (AK,AV,EU,FV,HL,RONAN,MM,SP) - Abnormal; Notable for the following: Result Value Ref Range Glucose 110 (*) 70 - 99 mg/dL All other components within normal limits CBC + AUTO DIFF (AK,AV,EU,FV,HL,RONAN,MM,SP) - Abnormal; Notable for the following: WBC 18.95 (*) 4.23 - 9.07 thou/cmm MCV 96.0 (*) 83.2 - 95.6 fl MCH 32.3 (*) 25.7 - 32.2 pg Seg. Neut. # 17.24 (*) 1.78 - 5.38 thou/cmm Immature Grans # 0.09 (*) 0.00 - 0.05 thou/cmm Lymphocyte # 0.45 (*) 0.84 - 2.85 thou/cmm Monocyte # 1.12 (*) 0.30 - 0.82 thou/cmm Eosinophil # 0.02 (*) 0.04 - 0.54 thou/cmm All other components within normal limits URINALYSIS WITH MICROSCOPIC (AK,AV,EU,FV,HL,RONAN,MM,SP) - Abnormal; Notable for the following: RBC, Urine 5.1 (*) 0.0 - 5.0 /hpf Hyaline Cast 1.8 (*) 0.0 - 1.0 /lpf All other components within normal limits MDRD GFR LACTIC ACID / LACTATE (AK,AV,EU,FV,HL,RONAN,MM,SP) INFLUENZA A AND B DIRECT ANTIGEN (AV,EU,FV,HL,RONAN,MM,SP) BLOOD CULTURE DRAW (AV,EU,FV,HL,RONAN,MM,SP) Narrative: #1 of 2 BLOOD CULTURE DRAW (AV,EU,FV,HL,RONAN,MM,SP) Narrative: #2 of 2 Procedures Medical Decision Making / ED Course ED Course 52 y/o M with MS presents for generalized weakness and fall. No LOC or head injury. No traumatic PE findings to suggest need for imaging. No acute focal neuro findings. Slightly tachycardia, likely dehydration related. IVF given. WBC 18, unclear etiology as CXR and UA negative. Given MS and patient on ocrelizumab concern for potential for underlying infection. Blood cx sent. Given significant weakness along with this leukocytosis will require admission. Discussed with hospitalist and given no focal findings we will hold any abx for now pending cx. Encounter Diagnosis ICD-10-CM 1. Generalized weakness R53.1 2. Leukocytosis, unspecified type D72.829 Plan The Patient was ADMITTED TO: Regular nursing floor. Case discussed with admitting physician, Dr. Herzog. Condition at time of disposition: stable SIGNATURE: MD Angi Encinas (Res) MD Miles Resident 12/07/17 1908 Claudio Saeed MD 12/07/17 1947 ED NOTE Observed: 12/07/2017 Status: COMPLETED Source: [place] 2:21 PM [facility] REPOSITORY HNO ID: [id number] Author: Prashanth CatRn) RUSS Hoffman Service: Emergency Medicine Author Type: Registered Nurse Type: ED Notes Filed: 12/07/2017 2:27 PM Note Text: Pt c/o feeling weak today. S/p fall attempting to amb to bathroom. Pt denies c/o pain . Sts he only eats or 2 meals a day, has a hx malnutrition. Pt arrived awake and alert x3. ED NOTE Observed: 12/07/2017 Status: COMPLETED Source: [place] 2:11 PM [facility] REPOSITORY HNO ID: [id number] Author: Regina CatRn) RUSS Callejas Service: (none) Author Type: Registered Nurse Type: ED Notes Filed: 12/07/2017 2:11 PM Note Text: Bed: ED-19 Expected date: Expected time: Means of arrival: Comments: squad ALLERGIES ALLERGIES DATE TYPE / CODE NAME / CODE REACTION SEVERITY SOURCE Drug No Known Drug [facility] Allergy/416 Allergies/142257 Hospital 314171(SNOM (RXNORM) Repository ED CT) [id number] NO KNOWN [place] [address](SNOMED ALLERGIES [facility]) Repository Drug NO KNOWN [facility] Class/15417 ALLERGIES Other [place] 1003(SNOMED Repository CT) ENCOUNTERS ENCOUNTERS ADMIT/DISCHARGE ACCOUNT NUMBER ADMITTING ENCOUNTER LOCATION SOURCE CLASS 10/11/2018 [id number] Ambulatory [facility] ding:OLS.ACW Repository 300 04/01/2018/04/01/[id number] [facility] Ambulatory Building:[address] Room: [facility] RMBed: [address] Repository 03/04/2018/03/07/20 [id number] Ambulatory [address] Main [place] Repository 01/21/2018/01/22/[id number] [facility] Ambulatory Building:[address] Repository 12/15/2017 [id number] Ambulatory [facility] MEDICAL Repository CENTERBuildi ng:IBMG 12/07/2017/12/10/19 [id number] [facility] Ambulatory [address] Other [place] Repository 12/07/2017/12/10/19 [id number] [facility], Inpatient [address] MEDICAL Repository CENTERBuildi nRoom: 7112Bed: 01 PAYERS PAYERS ENCOUNTER GUARANTOR PAYER SUBSCRIBER SOURCE 10/11/2018 Son Faith Primary Son Cai: Gissell DELGADO Insurance:[facility] [id number] Community [facility] *IN [facility] Number: Repository [place], [place] [address]Oyu: [id number] Date:2031-53-15DZOL () [place]S [address] [address]AF: 10/11/2018 Secondary NOT GIVENUNK Gissell Insurance:SELF PAY [facility] Number: Effective Repository Date:2018-10-11 04/01/2018 SON A SCHEHLDOB: Primary SON A [facility] Insurance:MEDICARE SCHEHLDOB: Hospital [facility] OPPolicy [id number] Repository [place] [address]Qpa: Number: [address] [id number] [place], [place] (HP) Date:1958-11-01 O [address]Shi: (234) [address]WSHIGSM[address], [phone] () [place] [address]YP: 04/01/2018 Secondary SON A [facility] SCHEHLDOB: Hospital icy Number: [id number] Repository [id number] [address] Date:1024-87-61QG [place], [place] [address], [place] [address]Ydt: [phone]: () [phone] 01/21/2018 SON A SCHEHLDOB: Primary SON SCHEHLDOB: [facility] Insurance:[facility] [id number] [facility], MEDICARE HMOPolicy [address] Repository [place] [address]Whm: Number: [place], [place] [id number] [address]Igc: (234) () Date:5446-09-25JK [phone] () [address] [place] [address]HB: 12/15/2017 SON A SCHEHLDOB: Primary SON A [facility] Insurance:ANTHEM SCHEHLDOB: Health [facility] [place] [address] MEDIBLUE DUAL [id number] Repository [address] ADVANTAGE [address]Auw: 330) MEDICAREPolicy [id number] () Number: [id number] Date: 12/15/2017 Secondary SON A [facility] Insurance:[place] SCHEHLDOB: Health System MEDICAIDPoly [id number] Repository Number: [id number] Date: 12/07/2017 SON CAI: Primary SON [place] Insurance:ISAC CAI: [place] [facility] [id number] Repository [address], [place] ADVANTAGE [id number]: [phone] MEDICAREPolicy [id number] () Number: [id number] Date: 12/07/2017 Secondary SON [facility] Insurance:SALLY CAI: [facility] MEDICAIDPolicy [id number] Repository Number: [id number] Date:
== END ==
LOC: OLS.ACW300 04:00
PROVIDERS: Visit Provider Family Medicine
DX: G35 Multiple sclerosis (principal); F33.0 Major depressive disorder, recurrent, mild; R62.7 Adult failure to thrive; R13.12 Dysphagia, oropharyngeal phase; R06.02 Shortness of breath; R53.1 Weakness; K05.6 Periodontal disease, unspecified
CPT/HCPCS: 36415; 80053; 85025

== ENCOUNTER → 2019-02-26 05:05 | Outpatient (REF) | payer MEDICARE, MEDICAID, SELFPAY ==
[2019-02-26 06:16] LABS: Hematocrit 48.9 % (40-54); Hemoglobin 16.5 g/dl (13.0-16.5); Mean Corp Hgb Conc 33.7 g/gl (32-36); Mean Corpuscular Hgb 31.4 pg (27.0-32.0); Mean Corpuscular Volume 93.1 fL (80-94); Mean Platelet Vol. 9.7 fl (6.2-12.0); Platelet Count 282 K/mm3 (150-450); RBC Distribution Width CV 12.9 % (11.6-14.6); RBC Distribution Width SD 43.9 fl (35.1-43.9); Red Blood Count 5.25 M/mm3 (4.6-6.2); White Blood Count 11.6 K/mm3 (4.4-11.0)
[2019-02-26 06:20] LABS: Scan Indicated on CBC? Y/N NO
[2019-02-26 07:05] LABS: ALB/GLOB Ratio 0.9 RATIO (0.9-2.4); AST(SGOT) 15 U/L (15-37); Alanine Aminotransfer ALT/SGPT 21 U/L (16-61); Albumin, Serum 3.5 g/dL (3.2-5.0); Alkaline Phosphatase 92 U/L (45-117); Anion Gap 6 (5-15); BUN 10 mg/dL (7-18); BUN/Creat Ratio 12.5 RATIO (10-20); Calcium,Total 8.8 mg/dL (8.5-10.1); Chloride 108 mmol/L (98-107); EST Glomerular Filtration Rate 107 mL/min (>60); Est Glom Filt Rate - Afr Amer 130 mL/min (>60); Glucose 115 mg/dL (74-106); Potassium 4.1 mmol/L (3.5-5.1); Protein, Total 7.5 g/dL (6.4-8.2); Sodium Level 140 mmol/L (136-145)
== END ==
LOC: OLS.ACW300 05:05
PROVIDERS: Visit Provider Family Medicine
DX: G35 Multiple sclerosis (principal); F33.0 Major depressive disorder, recurrent, mild; R62.7 Adult failure to thrive; R13.12 Dysphagia, oropharyngeal phase; R06.02 Shortness of breath; R53.1 Weakness; K05.6 Periodontal disease, unspecified
CPT/HCPCS: 36415; 80053; 81002; 85027; 87086; 87088

== ENCOUNTER → 2019-02-26 18:00 | Outpatient (REF) | payer MEDICARE, SELFPAY ==
[2019-02-27 09:41] LABS: Color, Urine Yellow (Yellow); Glucose, Dipstick Normal (Normal); Ketone-Dipstick Negative (Negative); Leukocyte Esterase-Dipstick Negative /ul (Negative); Nitrite-Dipstick Negative (Negative); Occult Blood-Urine Negative /ul (Negative); Protein-Dipstick 15 mg/dl (Negative); Urine Bilirubin Dipstick Negative (Negative); Urine Clarity Clear (Clear); Urine Urobilinogen Normal (Normal)
== END ==
LOC: OLS.ACW300 18:00
PROVIDERS: Visit Provider Family Medicine
DX: G35 Multiple sclerosis (principal); F33.0 Major depressive disorder, recurrent, mild; R62.7 Adult failure to thrive; R13.12 Dysphagia, oropharyngeal phase; R06.02 Shortness of breath; R53.1 Weakness; K05.6 Periodontal disease, unspecified
CPT/HCPCS: 81002; 87086; 87088

== ENCOUNTER → 2019-05-03 | Outpatient (REF) | payer MEDICARE, SELFPAY ==
[2019-05-03 20:01] LABS: Alcohol, Blood (Medical)-Serum < 3.0 mg/dL
== END | disposition home or self-care (01) ==
LOC: OLS.ACW300 17:30
PROVIDERS: Visit Provider Family Medicine
DX: F41.9 Anxiety disorder, unspecified (principal)
CPT/HCPCS: 36415; 80320; G0480

== ENCOUNTER → 2019-05-22 05:00 | Outpatient (REF) | payer MEDICARE, SELFPAY ==
[2019-05-22 08:33] LABS: Absolute Lymphocyte Count 1.06 X10^3/uL (0.83-4.51); Absolute Neutrophil Count 5.3 X10^3/uL (2.0-7.7); Basophil# 0.04 X10^3/uL; Basophil% 0.5 % (0-1); Eosinophils% 2.7 % (0-5); Hematocrit 48.7 % (40-54); Hemoglobin 16.2 g/dL (13.0-16.5); Lymphocyte # 1.06 X10^3/ul (4.0); Lymphocyte % 14.2 % (19-41); Mean Corp Hgb Conc 33.3 g/dL (32-36); Mean Corpuscular Hgb 31.2 pg (27.0-32.0); Mean Corpuscular Volume 93.8 fL (80-94); Mean Platelet Vol. 9.8 fl (6.2-12.0); Monocyte# 0.85 X10^3/uL; Monocyte% 11.3 % (0-10); NRBC Flagged by Analyzer 0 % (0-5); Neutrophil # 5.32 X10^3/uL (2.7-7.7); Platelet Count 290 K/mm3 (150-450); RBC Distribution Width CV 12.7 % (11.6-14.6); RBC Distribution Width SD 43.5 fl (35.1-43.9); Red Blood Count 5.19 M/mm3 (4.6-6.2); White Blood Count 7.5 K/mm3 (4.4-11.0)
[2019-05-22 08:44] LABS: ALB/GLOB Ratio 0.8 RATIO (0.9-2.4); AST(SGOT) 19 U/L (15-37); Alanine Aminotransfer ALT/SGPT 23 U/L (16-61); Albumin, Serum 3.4 g/dL (3.2-5.0); Alkaline Phosphatase 91 U/L (45-117); Anion Gap 10 (5-15); BUN 12 mg/dL (7-18); BUN/Creat Ratio 16.2 RATIO (10-20); Calcium,Total 8.9 mg/dL (8.5-10.1); Chloride 107 mmol/L (98-107); Creatinine, Serum 0.74 mg/dL (0.70-1.30); EST Glomerular Filtration Rate 117 mL/min (>60); Est Glom Filt Rate - Afr Amer 142 mL/min (>60); Glucose 94 mg/dL (74-106); Potassium 3.9 mmol/L (3.5-5.1); Protein, Total 7.4 g/dL (6.4-8.2); Sodium Level 141 mmol/L (136-145)
== END ==
LOC: OLS.ACW300 05:00
PROVIDERS: Visit Provider Family Medicine
DX: G35 Multiple sclerosis (principal); F33.0 Major depressive disorder, recurrent, mild; R62.7 Adult failure to thrive; R13.12 Dysphagia, oropharyngeal phase; R06.02 Shortness of breath; R53.1 Weakness; R27.9 Unspecified lack of coordination; Z91.81 History of falling
CPT/HCPCS: 36415; 80053; 85025